=== PATIENT | male | born 1990 | race Caucasian/White ===

== ENCOUNTER 2016-08-15 15:53 | Emergency (ER) | payer SELFPAY ==
[2016-08-15 16:16] VITALS: BP 125/91
--- NOTE | 2016-08-15 20:20 | UC ---
dilip Rodgers Timothy, scribed for Jennifer Mckoy MD on 08/15/16 at 1718 . FLU HPI - HPI Summary HPI Summary: Lex Goosdon is a 26 yo male presenting to [facility] with a cough, sore throat, constant 5/10 sharp, throbbing left ear pain, subjective fever, chills, and diaphoresis for the past 3 days, gradually worsening. His MHx includes tonsilectomy and tobacco use. - History of Current Complaint Chief Complaint: UCEar Stated Complaint: COUGH, AND EAR ACHE Time Seen by Provider: 08/15/16 17:13 Hx Obtained From: Patient Onset/Duration: Sudden Onset, Lasting Days, Still Present, Worse Since - now Severity Currently: Moderate Severity Initially: Moderate Pain Intensity: 5 Pain Scale Used: 0-10 Numeric Associated Signs & Symptoms: Positive: F/C, Cough - Allergy/Home Medications Allergies/Adverse Reactions: Allergies Allergy/AdvReac Type Severity Reaction Status Date / Time No Known Allergies Allergy Verified 12/29/15 12:42 PMH/Surg Hx/FS Hx/Imm Hx Previously Healthy: No - OM and ear tubes Endocrine History Of: Denies: Diabetes, Thyroid Disease Cardiovascular History Of: Denies: Cardiac Disorders, Hypertension, Pacemaker/ICD Respiratory History Of: Denies: COPD, Asthma GI/ History Of: Denies: Ulcer, Renal Disease - Surgical History Surgical History: Yes Surgery Procedure, Year, and Place: tubes in bilat ears;. TONSILECTOMY - Family History Known Family History: Positive: Cardiac Disease, Hypertension, Diabetes, Other - HLD - Social History Occupation: Employed Full-time Alcohol Use: Occasionally Substance Use Type: None Smoking Status (MU): Heavy Every Day Tobacco Smoker Amount Used/How Often: 1 ppd Review of Systems Constitutional: Fever - subjective, Chills, Other - diaphoresis Skin: Negative Eyes: Negative ENT: Sore Throat, Ear Ache, Nasal Discharge - congestion Respiratory: Cough Cardiovascular: Negative Gastrointestinal: Negative Genitourinary: Negative Motor: Negative Neurovascular: Negative Musculoskeletal: Negative Neurological: Negative Psychological: Negative All Other Systems Reviewed And Are Negative: Yes Physical Exam Triage Information Reviewed: Yes Appearance: No Pain Distress, Well-Nourished, Ill-Appearing Vital Signs: Initial Vital Signs Temp 99.6 F 08/15/16 16:12 Pulse 102 08/15/16 16:12 Resp 18 08/15/16 16:12 BP 125/91 08/15/16 16:12 Pulse Ox 97 08/15/16 16:12 Vital Signs Reviewed: Yes Eyes: Positive: Conjunctiva Clear ENT: Positive: Hearing grossly normal, Pharyngeal erythema, TM red - left, Muffled/hoarse voice Dental: Positive: Cervical Lymphadenopathy - anterior Neck: Positive: Supple, Nontender Respiratory: Positive: Lungs clear, Normal breath sounds, No respiratory distress Cardiovascular: Positive: RRR, No Murmur, Pulses Normal, Brisk Capillary Refill Musculoskeletal: Positive: Strength Intact, ROM Intact Neurological: Positive: Alert, Muscle Tone Normal Psychological Exam: Normal Psychological: Positive: Age Appropriate Behavior Skin Exam: Normal Flu Course/Dx - Course Course Of Treatment: Lex Goodson is a 26 yo male presenting to [facility] with 5/10 left ear pain, suggestive fever, and cough among other Sx. After clinical examination he will be discharged home with left otitis media and appropriate instructions. Of note is is BP of 125/91, for which he will be Dx with elevated blood pressure without diagnosis of HTN. - Differential Dx/Diagnosis Differential Diagnosis/HQI/PQRI: Bronchitis, Influenza, Other - left otitis media Provider Diagnoses: elevated blood pressure without a diagnosis of hyptertension , left otitis media Discharge - Discharge Plan Condition: Stable Disposition: HOME Prescriptions: Amoxicillin/Clavulanate TAB* [Augmentin TAB 875*] 875 mg PO BID #20 tab HYDROcodone/ACETAMIN 5-325 MG* [[place] 5-325 TAB*] 1 tab PO Q6H PRN #12 tab MDD 4 PRN Reason: Pain Ibuprofen TAB* [Motrin TAB* 800 MG] 800 mg PO Q6H #40 tab Patient Education Materials: Otitis Media (ED) Forms: *Work Release Referrals: No Primary Care Phys,NOPCP [Primary Care Provider] - [facility] [place] [facility] [Outside] - 2 Days Additional Instructions: Please follow up with the primary care physician provided regarding your visit to urgent care. Please have your blood pressure checked again with one month. Return to urgent care or the emergency department with any new or recurring symptoms. The documentation as recorded by the dilip wilhelm Timothy accurately reflects the service I personally performed and the decisions made by , Jennifer Mckoy MD.
== END 2016-08-15 17:44 | disposition home or self-care (01) ==
LOC: UCEAST 15:53
DX: H66.92 Otitis media, unspecified, left ear (principal); R03.0 Elevated blood-pressure reading, without diagnosis of hypertension; F17.210 Nicotine dependence, cigarettes, uncomplicated
CPT/HCPCS: 99211; G0463

== ENCOUNTER 2017-08-18 12:00 | Emergency (ER) | payer SELFPAY ==
--- NOTE | 2017-08-18 12:11 | UC ---
Abdominal Pain Male HPI - HPI Summary HPI Summary: Pt presents with vomiting, diarrhea, and lower abdominal pain that started yesterday evening. He tells me that this has worsened this morning and he has had diarrhea multiple times today and noticed bright red blood. The amount of blood has been increasing and is now mixed with darker areas of blood. He feels the pain spreading into his lower back - worse on right and worse AFTER having a BM. He has not eaten anything since last night. Is able to drink a little, but feels too nauseous. Feels warm and sweaty intermittently. Has not taken his temperature. Denies cough, SOB, chest pain, hematuria, or dysuria. No hx of kidney stone or bowel disease. - History of Current Complaint Stated Complaint: BLOOD IN STOOL CRAMPS Time Seen by Provider: 08/18/17 12:11 Hx Obtained From: Patient Onset/Duration: Sudden Onset Severity Initially: Mild Severity Currently: Moderate Pain Intensity: 7 Pain Scale Used: 0-10 Numeric - Allergies/Home Medications Allergies/Adverse Reactions: Allergies Allergy/AdvReac Type Severity Reaction Status Date / Time No Known Allergies Allergy Verified 08/18/17 12:18 Home Medications: Home Medications NK [No Home Medications Reported] 08/18/17 [History Confirmed 08/18/17] PMH/Surg Hx/FS Hx/Imm Hx - Additional Past Medical History Additional PMH: None Previously Healthy: Yes - Surgical History Surgical History: Yes Surgery Procedure, Year, and Place: tubes in bilat ears;. TONSILECTOMY - Family History Known Family History: Positive: Cardiac Disease, Hypertension, Diabetes, Other - HLD - Social History Occupation: Employed Full-time Lives: With Family Alcohol Use: Occasionally Substance Use Type: None Smoking Status (MU): Heavy Every Day Tobacco Smoker Amount Used/How Often: 1 ppd Review of Systems Constitutional: Negative Skin: Negative Respiratory: Negative Cardiovascular: Negative Gastrointestinal: Abdominal Pain, Vomiting, Diarrhea, Nausea Genitourinary: Negative Neurovascular: Negative Neurological: Negative Psychological: Negative All Other Systems Reviewed And Are Negative: Yes Physical Exam - Summary Physical Exam Summary: GENERAL: Mildly ill appearing with mild pallor. SKIN: No rashes, sores, or open wounds. HEENT: Head: AT/NC Eyes: PERRLA. EOM intact. Conjunctiva clear without inflammation or discharge. Ears: Hearing grossly normal. TMs intact, no bulging, erythema, or edema. Nose: Nasal mucosa pink and moist. NTTP maxillary and frontal sinus. Throat: Posterior oropharynx without exudates, erythema, or tonsillar enlargement. Uvula midline. NECK: Supple. Nontender. No lymphadenopathy. CHEST: CTAB. No r/r/w. No accessory muscle use. Breathing comfortably and in no distress. CV: Tachycardia. Without m/r/g. Pulses intact. Brisk cap refill. ABDOMEN: Moderate TTP LLQ and RLQ. Neagtive psoas and rovsing's. No distention or guarding. No CVA tenderness. Bowel sounds present. NEURO: Alert. CN II-XII grossly intact. PSYCH: Age appropriate behavior. Triage Information Reviewed: Yes Abd Pain Male Course/Dx - Course Course Of Treatment: UA with 2+ blood and 3+ ketones. EKG with sinus tachycardia 116bpm no ST changes as read by Dr. Andrade. I suspect his symptoms are likely viral, but given his tachycardia, elevated BP, lower abdominal pain, and increasing amounts of blood in stool - I advised the pt that he should be further evaluated in the ED for likely labwork and imaging (ddx diverticulosis, anemia, GI bleed, viral, colitis, appendicitis, renal calculi). He was agreeable to this plan and elected to go by ambulance transfer as he did not feel well enough to drive himself. Left in stable condition via EMS. - Differential Dx/Clinical Impression Provider Diagnoses: Lower abdominal pain. Blood in stool. Vomiting. Diarrhea Discharge - Sign-Out/Discharge Documenting (check all that apply): Discharge/Admit/Transfer - Discharge Plan Condition: Stable Disposition: [facility] OF CARE FAC Referrals: No Primary Care Phys,NOPCP [Primary Care Provider] - Additional Instructions: [place] to [facility] for further workup of abdominal pain and blood in stool - Billing Disposition and Condition Condition: STABLE Disposition: [facility]
[2017-08-18 12:18] VITALS: BP 140/92
[2017-08-18] MEDS ORDERED: Ondansetron ODT TAB* 4 MG PO ONE (12:23)
[2017-08-18] MEDS ORDERED: NS 0.9% 1000 ML* 1,000 ML IV ONE (12:34)
== END 2017-08-18 12:57 | disposition short-term general hospital (02) ==
LOC: UCEAST 12:00
DX: R10.30 Lower abdominal pain, unspecified (principal); K92.1 Melena; R19.7 Diarrhea, unspecified; R11.10 Vomiting, unspecified; F17.210 Nicotine dependence, cigarettes, uncomplicated
CPT/HCPCS: 81003; 93005; 96360; 99213; A9270-GY; G0463

== ENCOUNTER 2017-08-18 13:17 | Inpatient (IN) | payer SELFPAY ==
[2017-08-18] MEDS ORDERED: Ondansetron INJ* 2 MG/ML VIAL IV ONE (13:24)
[2017-08-18] MEDS ORDERED: Acetaminophen TAB* 325 MG PO ONE (13:24)
[2017-08-18] MEDS ORDERED: Acetaminophen TAB* 325 MG ONE (13:25)
[2017-08-18] MEDS: NS 0.9% 1000 ML* 2,000 ML IV ONE ×2 (13:28→14:23)
[2017-08-18 14:02] LABS: ABS Basophils 0 10^3/ul (0-0.2); ABS Eosinophils 0 10^3/ul (0-0.6); ABS Lymphocytes 1.2 10^3/ul (1.0-4.8); ABS Monocytes 1.3 10^3/ul (0-0.8); ABS Neutrophils 14.5 10^3/ul (1.5-7.7); ABS Nucleated RBC 0 10^3/ul; Eosinophil % 0 % (0-6); Hematocrit 48 % (42-52); Hemoglobin 16.5 g/dl (14.0-18.0); Lymphocyte % 6.8 % (25-47); Mean Corpuscular HGB Conc 34 g/dl (31-36); Mean Corpuscular Hemoglobin 31 pg (27-31); Mean Corpuscular Volume 89 fL (80-94); Mean Platelet Volume 7.4 um3 (7.4-10.4); Nucleated Red Blood Cells % 0; Platelet Count 249 10^3/ul (150-450); Red Blood Count 5.36 10^6/ul (4.0-5.4); Red Cell Distribution Width 13 % (10.5-15)
[2017-08-18] MEDS ORDERED: Morphine INJ* 4 MG/ML 1 ML CARPUJECT IV ONE (14:06)
[2017-08-18] MEDS ORDERED: NS 0.9% 1000 ML* 2,000 ML IV ONE (14:06)
[2017-08-18] MEDS ORDERED: Morphine VIAL* 4 MG/ML VIAL (1 ml vial) IV ONE (14:20)
[2017-08-18] MEDS ORDERED: Iohexol 300* (CONTRAST) 10 ML SDV IV ONE (14:42)
--- NOTE | 2017-08-18 16:14 | RAD ---
INDICATION: Lower abdominal pain and bloody diarrhea for one day. Fever. COMPARISON: No relevant prior exams available on the [facility] PACS for comparison. TECHNIQUE: Multidetector CT images were obtained from the lung bases to the ischial tuberosities with 150 mL Omnipaque 300 IV and oral contrast. Multiplanar reformation. REPORT: Images of the inferior thorax remarkable for mild cardiomegaly and diffuse mild prominence of the interstitial markings. Negative for pleural effusions. Decreased density of the liver relative to the spleen consistent with fatty infiltration. No focal hepatic lesions. Unremarkable CT appearance of the gallbladder. Negative for biliary dilatation. No CT abnormality of the pancreas or spleen. Small splenule at the splenic hilum. No CT abnormality of the upper GI. Mildly dilated jejunal bowel loops without identification of a discrete transition point. Unremarkable diminutive medial extending appendix. Fairly featureless colon from the rectum retrograde to the distal ascending segment. Only mild colonic wall thickening in the same distribution most prominent at the transverse colon. Negative for ascites, free air, hernias. Normal adrenal glands. Unremarkable kidneys with symmetric nephrograms and pyelograms. Unremarkable nondilated ureters and urinary bladder. 1 cm short axis portal caval lymph node within normal limits. Negative for lymphadenopathy. Unremarkable abdominal aorta and iliac arteries. Physiologic distention of the IVC. Unremarkable sacroiliac joints. No suspicious osseous lesions evident. IMPRESSION: 1. Normal appendix documented. 2. The CT appearance of the colon is concerning for probable ulcerative colitis. Only mild contiguous colonic wall thickening. No significant perienteric inflammatory change, ascites, or peritoneal abscess. Mild small bowel ileus.
[2017-08-18] MEDS ORDERED: Ciprofloxacin TAB* 500 MG PO ONE (16:47)
[2017-08-18] MEDS ORDERED: metroNIDAZOLE TAB* 250 MG PO ONE (16:47)
[2017-08-18] MEDS ORDERED: Ondansetron INJ* 2 MG/ML VIAL IV PRN (18:56)
[2017-08-18] MEDS ORDERED: NS 0.9% 1000 ML* 1,000 ML IV ONE (18:56)
[2017-08-18] MEDS ORDERED: Ciprofloxacin 400MG IVPREMIX(* 400 MG/200 ML BAG IVPB SCH (19:00)
[2017-08-18] MEDS: metroNIDAZOLE IV 500 MG/100ML* 500 MG/100 ML BAG IVPB SCH (19:24)
[2017-08-18] MEDS: Acetaminophen TAB* 325 MG PO PRN (19:49)
[2017-08-18] MEDS ORDERED: NS 0.9% 1000 ML* 1,000 ML IV SCH (20:00)
[2017-08-18] MEDS ORDERED: KCL 10 MEQ/50 ML IVPREMIX* 10 MEQ/50 ML BAG IV SCH (20:00)
[2017-08-18] MEDS ORDERED: Potassium Chloride IV* 40 MEQ in NS 0.9% 250 ML* 250 ML IVPB ONE (20:00)
--- NOTE | 2017-08-18 21:08 | HP ---
HISTORY AND PHYSICAL: DATE OF ADMISSION: 08/18/17 PRIMARY CARE PROVIDER: None. ATTENDING PHYSICIAN WHILE IN THE HOSPITAL: Brian Tian MD * (report dictated by Ila Kimbrough NP) CHIEF COMPLAINT: 1. Abdominal pain. 2. Diarrhea. HISTORY OF PRESENT ILLNESS: Mr. Goodson is a 27-year-old male patient who is previously healthy. He does have a history of tobacco abuse. He is morbidly obese; however, he comes into the ER today stating that the last 24 to 36 hours , he has had it. He presented today with complaints of lower abdominal cramping getting worse over the last 24 hours. He is not feeling good. He also has decreased appetite. Anytime, he was getting cramps in things such as he said running right through him causing diarrhea. He did say that he was having some bloody diarrhea at times, scant amount. He does admit to lower abdominal cramping. He had a fever last night and today and it is 104. He has had again lower abdominal cramping. No nausea or vomiting. No chest pain or shortness of breath. Past medical history is significant for none. He is a smoker and he is morbidly obese, but he came into the ED, was evaluated, was found to have diffuse colitis, elevated white count, elevated CRP, fever. There was concern for these findings and so because of these findings, we were asked to evaluate for admission. PAST MEDICAL HISTORY: Denies. PAST SURGICAL HISTORY: He has had eustachian tubes placed and he has had tonsillectomy. HOME MEDICATIONS: Denied. ALLERGIES TO MEDICATIONS: No known drug allergies. FAMILY HISTORY: Both his parents are diabetic. No reports of ulcerative colitis or Crohn's. SOCIAL HISTORY: He is a smoker. He smokes about half a pack. He has been smoking since he was 13 years old. He rarely drinks alcohol. Surrogate decision maker is his fiancee. REVIEW OF SYSTEMS: There is a documented fever here. He denied having any significant weight change. There is no ear discharge. He denies having any rhinorrhea. No sore throat. No thyroid enlargement. Denied having any chest pain. There is no orthopnea. There is no nocturnal dyspnea. There is abdominal pain per my HPI. Denies having any loss of consciousness. No pruritus and no skin ulcerations. Review of 14 systems completed, all others negative. PHYSICAL EXAMINATION GENERAL: At this time, Mr. Goodson is a 27-year-old male patient. He is sitting in the ED stretcher. He does appear to be well nourished, well developed. He does not appear to be in any acute distress. VITAL SIGNS: Blood pressure 149/91; pulse 110; respirations were 20, the recording that the respiratory rate are in the upper 20s, but when I encountered him and spoke to him, he was breathing at 20, O2 saturation 96%; temperature initially was 104.7, is now 98.7. HEENT: Head: Atraumatic, normocephalic. Eyes: EOMs are intact. Sclerae anicteric and not pale. Throat: Oral mucosa appears to be dry. No oropharyngeal erythema. NECK: Supple. LUNGS: Clear to auscultation bilaterally. No wheezes, rales, or rhonchi. HEART: Sounds S1, S2. He is tachycardic. ABDOMEN: Soft, flat. There was tenderness in the lower quadrant. Bowel sounds are present. EXTREMITIES: Pulses are 2+ throughout. He is moving all 4 extremities with 5/ 5 strength. NEUROLOGIC: The patient is awake, alert, oriented x3. No gross focal deficits. SKIN: Intact. DIAGNOSTIC STUDIES/LAB DATA: WBC 17.0, RBC of 5.36, hemoglobin 15.5, hematocrit of 48, platelet count of 249. His sodium is 131, potassium is 3.4, chloride of 98, bicarb 23, BUN 12, creatinine of 1.18, glucose 92, lactate 1.2, calcium 8.9. Total bili 0.5, AST 35, ALT 44, alk phos 63. CRP 153. Albumin 4.1. Lipase normal. Abdominal and pelvis CT obtained today which revealed, impression: Normal appendix documented in the CT. Appearance of the colon is concerning for probable ulcerative colitis, only mild contiguous colonic wall thickening. No specific perienteric inflammatory change, ascites or peritoneal abscess. Mild small bowel ileus. Old medical records were reviewed. ASSESSMENT AND PLAN: Mr. Goodson is a 27-year-old male patient coming into the emergency department today with complaints of lower abdominal pain, cramping, diarrhea. It was blood tinged. We were asked to evaluate for admission. He will be admitted under inpatient status for: 1. Colitis. At this time, I am concerned it is infectious colitis. I am going to send off Escherichia coli. In addition to this, stool cultures, Clostridium difficile, stool for ova and parasites, and get a fecal lactoferrin. Because of the CT findings, I think we need to get GI involved. We will touch base with them tomorrow. I am going to put him on Cipro and Flagyl, normal saline, clear liquid diet and continue to follow him closely. 2. Obesity. Continue with lifestyle modification. 3. History of tobacco abuse. I have offered cessation and counseling. 4. DVT prophylaxis. SCDs have been ordered. 5. Fluids, electrolytes, and nutrition. Clear liquid diet. 6. Code status. Full code. TIME SPENT: On the admission was 60 minutes, greater than half of the time spent [id number] with the patient obtaining my history and physical, other half of the time spent going over the plan of care with the patient and implementing plan of care. I did discuss the plan of care with my attending, Dr. Tian, he is in agreement. ILA KIMBROUGH, MEDICAL DEVICE [id number]/[facility] #: [id number] MTDMarie
[2017-08-18] MEDS ORDERED: NS 0.9% 250 ML* 250 ML ONE (21:47)
[2017-08-19] MEDS: metroNIDAZOLE IV 500 MG/100ML* 500 MG/100 ML BAG IVPB SCH ×2 (02:55→11:23)
[2017-08-19] MEDS: Acetaminophen TAB* 325 MG PO PRN ×4 (06:11→20:28)
[2017-08-19 06:35] LABS: Hematocrit 40 % (42-52); Hemoglobin 14.1 g/dl (14.0-18.0); Mean Corpuscular HGB Conc 35 g/dl (31-36); Mean Corpuscular Hemoglobin 31 pg (27-31); Mean Corpuscular Volume 88 fL (80-94); Mean Platelet Volume 7.1 um3 (7.4-10.4); Platelet Count 221 10^3/ul (150-450); Red Blood Count 4.58 10^6/ul (4.0-5.4); Red Cell Distribution Width 14 % (10.5-15); White Blood Count 10.4 10^3/ul (3.5-10.8)
[2017-08-19 06:49] LABS: EGFR Non-African American 103.9 (>60)
[2017-08-19 07:27] LABS: ABS Basophils 0.1 10^3/ul (0-0.2); ABS Eosinophils 0 10^3/ul (0-0.6); ABS Lymphocytes 1.2 10^3/ul (1.0-4.8); ABS Monocytes 1.3 10^3/ul (0-0.8); ABS Neutrophils 7.8 10^3/ul (1.5-7.7); ABS Nucleated RBC 0 10^3/ul; Nucleated Red Blood Cells % 0
[2017-08-19 07:30] LABS: Monocytes % 11 % (0-7)
[2017-08-19] MEDS ORDERED: Ciprofloxacin 400MG IVPREMIX(* 400 MG/200 ML BAG IVPB SCH (08:00)
[2017-08-19] MEDS: Morphine VIAL* 4 MG/ML VIAL (1 ml vial) IV PRN ×3 (08:20→20:29)
[2017-08-19] MEDS ORDERED: Levofloxacin 750 MG IVPREMIX(* 750 MG/150 ML BAG IVPB STA (12:21)
--- NOTE | 2017-08-19 18:29 | PN ---
Subjective Date of Service: 08/19/17 Interval History: Patient seen and examined. Still with abdominal pain, lower abdomen and continued diarrhea. No n/v. Patient states no longer has bloody diarrhea, no fever or chills, no chest pain, no SOB. Objective Active Medications: Acetaminophen (Tylenol Tab*) 650 mg PO Q4H PRN PRN Reason: FEVER/PAIN Last Admin: 08/19/17 15:50 Dose: 650 mg Sodium Chloride (Ns 0.9% 1000 Ml*) 1,000 mls @ 125 mls/hr IV PER RATE ZACKERY Last Admin: 08/18/17 21:50 Dose: 125 mls/hr Levofloxacin/Dextrose (Levaquin 750 Mg Ivpremix(*)) 750 mg in 150 mls @ 100 mls /hr IVPB Q24H ZACKERY Morphine Sulfate (Morphine Vial*) 2 mg IV Q4H PRN PRN Reason: PAIN - MILD Last Admin: 08/19/17 15:41 Dose: 2 mg Ondansetron HCl (Zofran Inj*) 4 mg IV Q6H PRN PRN Reason: NAUSEA Last Admin: 08/19/17 06:11 Dose: 4 mg Vital Signs - 8 hr 08/19/17 08/19/17 08/19/17 11:15 11:19 15:26 Temperature 98.0 F 97.8 F Pulse Rate 73 75 Respiratory 18 22 Rate Blood Pressure 117/72 120/72 (mmHg) O2 Sat by Pulse 97 97 Oximetry 08/19/17 08/19/17 15:41 17:23 Temperature Pulse Rate Respiratory 18 18 Rate Blood Pressure (mmHg) O2 Sat by Pulse Oximetry Oxygen Devices in Use Now: None Appearance: Alert, ill-appearing Eyes: No Scleral Icterus, PERRLA Ears/Nose/Mouth/Throat: Mucous Membranes Moist Neck: NL Appearance and Movements; NL JVP, Trachea Midline Respiratory: Symmetrical Chest Expansion and Respiratory Effort, Clear to Auscultation Cardiovascular: NL Sounds; No Murmurs; No JVD, RRR Abdominal: NL Sounds; No Tenderness; No Distention Extremities: No Edema Neurological: Alert and Oriented x 3 Nutrition: Taking PO's Result Diagrams: 08/19/17 06:22 08/19/17 06:22 Microbiology and Other Data: Microbiology 08/18/17 19:24 Stool Gross Appearance - Final Stool Stool Lactoferrin - Final Cryptosporidium/Giardia - Final Neg Cryptosporidium/Giardia 08/18/17 19:24 Stool Culture - Preliminary Stool Salmonella Species Stool Gross Appearance - Final Shiga Toxin I & II - Final Negative Shiga Toxin 1 & 2 C. difficile DNA Amplification - Final 027 Presumptive NEGATIVE Toxigenic C.diff NEGATIVE Diagnostic Imaging: Patient Name: YUSUF CONTRERAS Medical Record#: [id number] Ordering Physician: Richard Lloyd MD Acct.#: [id number] : 1990 Age: 27 Sex: M Location: EMERGENCY DEPARTMENT Exam Date: 08/18/17 1324 ADM Status: REG ER Order Information: CT ABD/PEL W Accession Number: [id number] CPT: 44225 INDICATION: Lower abdominal pain and bloody diarrhea for one day. Fever. COMPARISON: No relevant prior exams available on the [facility] PACS for comparison. TECHNIQUE: Multidetector CT images were obtained from the lung bases to the ischial tuberosities with 150 mL Omnipaque 300 IV and oral contrast. Multiplanar reformation. REPORT: Images of the inferior thorax remarkable for mild cardiomegaly and diffuse mild prominence of the interstitial markings. Negative for pleural effusions. Decreased density of the liver relative to the spleen consistent with fatty infiltration. No focal hepatic lesions. Unremarkable CT appearance of the gallbladder. Negative for biliary dilatation. No CT abnormality of the pancreas or spleen. Small splenule at the splenic hilum. No CT abnormality of the upper GI. Mildly dilated jejunal bowel loops without identification of a discrete transition point. Unremarkable diminutive medial extending appendix. Fairly featureless colon from the rectum retrograde to the distal ascending segment. Only mild colonic wall thickening in the same distribution most prominent at the transverse colon. Negative for ascites, free air, hernias. Normal adrenal glands. Unremarkable kidneys with symmetric nephrograms and pyelograms. Unremarkable nondilated ureters and urinary bladder. 1 cm short axis portal caval lymph node within normal limits. Negative for lymphadenopathy. Unremarkable abdominal aorta and iliac arteries. Physiologic distention of the IVC. Unremarkable sacroiliac joints. No suspicious osseous lesions evident. IMPRESSION: 1. Normal appendix documented. 2. The CT appearance of the colon is concerning for probable ulcerative colitis. Only mild contiguous colonic wall thickening. No significant perienteric inflammatory change, ascites, or peritoneal abscess. Mild small bowel ileus. <Electronically signed by Erwin Alejandre MD in [place]> 08/18/17 1611 Dictated By: Erwin Alejandre MD Dictated Date/Time: 08/18/17 1611 Transcribed Date/Time: 08/18/17 1541 Copy to: CC:Richard Lloyd MD; No Primary Care Phys,NOPCP Imaging - [facility] Imaging - [facility] Imaging - [facility] 1 of 2 Assess/Plan/Problems-Billing Assessment: This is a 27 year old male with copious diarrhea and abdominal pain, stool culture with salmonella. - Patient Problems (1) Salmonellosis Code(s): A02.9 - SALMONELLA INFECTION, UNSPECIFIED SNOMED Code(s): 222784818 Comment: - changed atbx to levaquin today - does not appear septic - pain control - monitor stool output - advance diet tomorrow if tolerated - May consider GI and ID consults if no improvement tomorrow (2) Diarrhea Code(s): R19.7 - DIARRHEA, UNSPECIFIED SNOMED Code(s): 79902127 Comment: - 2/2 to above - IVF - supportive care (3) Leukocytosis Code(s): D72.829 - ELEVATED WHITE BLOOD CELL COUNT, UNSPECIFIED SNOMED Code(s) : 279228691 Comment: - resolving, monitor CBC (4) Electrolyte abnormality Code(s): E87.8 - OTH DISORDERS OF ELECTROLYTE AND FLUID BALANCE, NEC SNOMED Code(s): 124354922 Comment: - 2/2 to above - improving with IVF management Status and Disposition: remain inpatient
[2017-08-20] MEDS: Morphine VIAL* 4 MG/ML VIAL (1 ml vial) IV PRN ×5 (00:40→20:00)
[2017-08-20] MEDS: Acetaminophen TAB* 325 MG PO PRN ×5 (00:41→20:00)
[2017-08-20 06:44] LABS: Hematocrit 43 % (42-52); Hemoglobin 14.8 g/dl (14.0-18.0); Mean Corpuscular HGB Conc 34 g/dl (31-36); Mean Corpuscular Hemoglobin 31 pg (27-31); Mean Corpuscular Volume 89 fL (80-94); Mean Platelet Volume 7.4 um3 (7.4-10.4); Platelet Count 237 10^3/ul (150-450); Red Blood Count 4.85 10^6/ul (4.0-5.4); Red Cell Distribution Width 13 % (10.5-15); White Blood Count 8.6 10^3/ul (3.5-10.8)
[2017-08-20 07:10] LABS: EGFR Non-African American 103.9 (>60)
[2017-08-20 07:32] LABS: ABS Basophils 0 10^3/ul (0-0.2); ABS Eosinophils 0.2 10^3/ul (0-0.6); ABS Lymphocytes 1.2 10^3/ul (1.0-4.8); ABS Monocytes 1.3 10^3/ul (0-0.8); ABS Neutrophils 5.8 10^3/ul (1.5-7.7)
[2017-08-20 07:34] LABS: Monocytes % 13 % (0-7)
[2017-08-20] MEDS ORDERED: Levofloxacin 750 MG IVPREMIX(* 750 MG/150 ML BAG IVPB SCH (13:00)
--- NOTE | 2017-08-20 15:57 | CONS ---
CONSULTATION REPORT: DATE OF CONSULT: 08/20/17 REQUESTING PROVIDER: Steven Villegas NP CONSULTING SERVICE: Infectious Disease. REASON FOR CONSULT: Salmonella colitis. IMPRESSION: 1. Colitis due to salmonella species, which grew on stool culture, and his fever and tachycardia are improving with fluids and antibiotics; however, he has severe persistent left-sided abdominal pain, which I think is due to colitis. He does have rebound tenderness. I think perforation is less likely a possibility. 2. Morbid obesity. RECOMMENDATION: Continue Levaquin 750 mg IV daily and we will check an abdominal x- ray to evaluate size of colon and rule out free air. Follow his abdominal symptoms. HISTORY OF PRESENT ILLNESS: This is a 27-year-old male with obesity, admitted with diarrhea and abdominal pain. Diarrhea developed over the weekend, late Saturday, with multiple watery slightly bloody stools, some mucus, number of stools per day and night, and then Saturday developed more severe left and upper abdominal pain, came to the emergency room on 08/18/17. His white count was 17, 000. He was started on Cipro and Flagyl. He had a CT scan that showed bowel wall ischemia on the transverse and descending colon to the rectum. I switched yesterday to Levaquin 750 mg, which he has had once. He was initially febrile to 40.4 degrees on admission and that was the last fever he has had. His abdominal pain has been bad since Saturday, mostly on the left side, worse when he is moving around and when he is standing up, better when he lies down and stays still. Tylenol and the pain medicine have been helpful, but do not resolve the pain. He rates it 9/10, that is worse. He has had no nausea. He is taking sips of clear fluids. He has had a couple of loose stools today with some blood-tinged parts. The stool culture grew salmonella. It was negative for C. diff. Negative for crypto and giardia. PAST MEDICAL HISTORY: 1. Obesity. 2. History of eustachian tubes placed. 3. Status post tonsillectomy. MEDICATIONS: 1. Tylenol. 2. Levaquin. 3. Zofran. ALLERGIES: No known drug allergies. SOCIAL HISTORY: He lives in [place] with his fiancee and daughter. He is a smoker. REVIEW OF SYSTEMS: A 14-point review of systems was all negative except as noted above in the history of present illness. PHYSICAL EXAM: Vital Signs: Temperature 36, heart rate 70, respiratory rate 14 , blood pressure 120/70, oxygen saturation 96% on room air. General: He is awake and appears mildly uncomfortable. HEENT: There is no conjunctival hemorrhage. Oropharynx without lesions. Neck: Supple without mass. Lymph Nodes: There is no inguinal, axillary, or epitrochlear lymphadenopathy. Heart : Regular rate and rhythm without murmurs, rubs, or gallops. Lungs: Clear to auscultation bilaterally. Abdomen: Mildly distended and soft. There is left- sided tenderness to palpation. No right-sided or right lower quadrant tenderness. There is mild rebound tenderness. There is no pain when I bump the bed. There are bowel sounds present. Skin: There is no rash or splinter hemorrhages. Musculoskeletal: There is no spine tenderness to palpation or joint synovitis. LABORATORY DATA: White blood cell count 8, hemoglobin 14, and platelets 237. Creatinine is 0.8. CRP was 150 on 08/18/17. Please see impression and recommendations outlined above. Thanks for asking me to see Mr. Goodson in consultation. [id number]/[id number] #: [id number] TL
--- NOTE | 2017-08-20 16:10 | PN ---
Subjective Date of Service: 08/20/17 Interval History: No overnight events. Still complains of left-sided abdominal pain that he does not think is improving. Diarrhea x 3 this morning, yesterday it was too often to count. Has not seen any blood in his stool, no documented fevers. Tolerating a clear liquid diet, but wants to advance diet. No other complaints besides abdominal pain. Family History: Unchanged from Admission Social History: Unchanged from Admission Past Medical History: Unchanged from Admission Objective Active Medications: Acetaminophen (Tylenol Tab*) 650 mg PO Q4H PRN PRN Reason: FEVER/PAIN Last Admin: 08/20/17 15:54 Dose: 650 mg Sodium Chloride (Ns 0.9% 1000 Ml*) 1,000 mls @ 125 mls/hr IV PER RATE [facility] Last Admin: 08/18/17 21:50 Dose: 125 mls/hr Levofloxacin/Dextrose (Levaquin 750 Mg Ivpremix(*)) 750 mg in 150 mls @ 100 mls /hr IVPB Q24H [facility] Last Admin: 08/20/17 12:52 Dose: 100 mls/hr Morphine Sulfate (Morphine Vial*) 2 mg IV Q4H PRN PRN Reason: PAIN - MILD Last Admin: 08/20/17 15:55 Dose: 2 mg Ondansetron HCl (Zofran Inj*) 4 mg IV Q6H PRN PRN Reason: NAUSEA Last Admin: 08/19/17 06:11 Dose: 4 mg Vital Signs - 8 hr 08/20/17 08/20/17 08/20/17 10:42 11:20 11:54 Temperature 97.9 F Pulse Rate 72 Respiratory 14 14 16 Rate Blood Pressure 122/74 (mmHg) O2 Sat by Pulse 96 Oximetry 08/20/17 15:55 Temperature Pulse Rate Respiratory 16 Rate Blood Pressure (mmHg) O2 Sat by Pulse Oximetry Oxygen Devices in Use Now: None Appearance: alert, uncomfortable, nontoxic Eyes: No Scleral Icterus Ears/Nose/Mouth/Throat: NL Teeth, Lips, Gums Neck: NL Appearance and Movements; NL JVP, Trachea Midline Respiratory: Symmetrical Chest Expansion and Respiratory Effort, Clear to Auscultation Cardiovascular: NL Sounds; No Murmurs; No JVD, RRR, No Edema Abdominal: - - hyperactive bowel sounds, left-sided pain to palpation with guarding Lymphatic: No Cervical Adenopathy Extremities: No Edema Skin: No Rash or Ulcers Neurological: Alert and Oriented x 3 Result Diagrams: 08/20/17 06:29 08/20/17 06:29 Microbiology and Other Data: Microbiology 08/18/17 19:24 Stool Gross Appearance - Final Stool Stool Lactoferrin - Final Cryptosporidium/Giardia - Final Neg Cryptosporidium/Giardia 08/18/17 19:24 Stool Culture - Preliminary Stool Salmonella Species Stool Gross Appearance - Final Shiga Toxin I & II - Final Negative Shiga Toxin 1 & 2 C. difficile DNA Amplification - Final 027 Presumptive NEGATIVE Toxigenic C.diff NEGATIVE Diagnostic Imaging: Patient Name: YUSUF CONTRERAS Medical Record#: [id number] Ordering Physician: Richard Lloyd MD Acct.#: [id number] : 1990 Age: 27 Sex: M Location: EMERGENCY DEPARTMENT Exam Date: 08/18/17 1324 ADM Status: REG ER Order Information: CT ABD/PEL W Accession Number: [id number] CPT: 30477 INDICATION: Lower abdominal pain and bloody diarrhea for one day. Fever. COMPARISON: No relevant prior exams available on the [facility] PACS for comparison. TECHNIQUE: Multidetector CT images were obtained from the lung bases to the ischial tuberosities with 150 mL Omnipaque 300 IV and oral contrast. Multiplanar reformation. REPORT: Images of the inferior thorax remarkable for mild cardiomegaly and diffuse mild prominence of the interstitial markings. Negative for pleural effusions. Decreased density of the liver relative to the spleen consistent with fatty infiltration. No focal hepatic lesions. Unremarkable CT appearance of the gallbladder. Negative for biliary dilatation. No CT abnormality of the pancreas or spleen. Small splenule at the splenic hilum. No CT abnormality of the upper GI. Mildly dilated jejunal bowel loops without identification of a discrete transition point. Unremarkable diminutive medial extending appendix. Fairly featureless colon from the rectum retrograde to the distal ascending segment. Only mild colonic wall thickening in the same distribution most prominent at the transverse colon. Negative for ascites, free air, hernias. Normal adrenal glands. Unremarkable kidneys with symmetric nephrograms and pyelograms. Unremarkable nondilated ureters and urinary bladder. 1 cm short axis portal caval lymph node within normal limits. Negative for lymphadenopathy. Unremarkable abdominal aorta and iliac arteries. Physiologic distention of the IVC. Unremarkable sacroiliac joints. No suspicious osseous lesions evident. IMPRESSION: 1. Normal appendix documented. 2. The CT appearance of the colon is concerning for probable ulcerative colitis. Only mild contiguous colonic wall thickening. No significant perienteric inflammatory change, ascites, or peritoneal abscess. Mild small bowel ileus. <Electronically signed by Erwin Alejandre MD in OV> 08/18/17 1611 Dictated By: Erwin Alejandre MD Dictated Date/Time: 08/18/17 1611 Transcribed Date/Time: 08/18/17 1541 Copy to: CC:Richard Lloyd MD; No Primary Care Phys,NOPCP Imaging - [facility] Imaging - [facility] Imaging - [facility] 1 of 2 Assess/Plan/Problems-Billing Assessment: This is a 27 year old male admitted with diarrhea and findings concerning for UC on CT, then found to have salmonella in the stool. - Patient Problems (1) Colitis Current Visit: Yes Status: Acute Code(s): K52.9 - NONINFECTIVE GASTROENTERITIS AND COLITIS, UNSPECIFIED SNOMED Code(s): 16079840 Comment: Inflammatory vs. infectious--> finding of salmonella in stool suggests infectious; no history suggestive of inflammatory, however I would expect his symptoms to be improving by now. Evaluated by ID this morning, who recommended continuation of levaquin CT abdomen showed "probable ulcerative colitis," I suspect this finding reflects salmonella colitis. Advance diet today. Status and Disposition: inpatient
--- NOTE | 2017-08-20 16:20 | RAD ---
HISTORY: Seminal colitis, worsening pain COMPARISONS: CT dated August 18, 2017 VIEWS: Frontal supine and upright views of the abdomen. FINDINGS: BOWEL: There is a nonspecific bowel gas pattern, with nondilated small bowel gas noted. CALCULI: There are no abnormal calculi. BONES AND SOFT TISSUES: There are no osseous abnormalities. OTHER FINDINGS: The lung bases are clear. There is no subphrenic gas. IMPRESSION: NONSPECIFIC BOWEL GAS PATTERN. NO APPRECIABLE FREE PERITONEAL GAS.
[2017-08-21] MEDS: Acetaminophen TAB* 325 MG PO PRN ×3 (00:06→19:48)
[2017-08-21] MEDS: Morphine VIAL* 4 MG/ML VIAL (1 ml vial) IV PRN ×3 (00:07→19:47)
--- NOTE | 2017-08-21 10:50 | PN ---
Progress Note - Progress Note Date of Service: 08/21/17 SOAP: Subjective: CC: colitis HPI: 27 year old man with abd pain and diarrhea; left sided pain which is slightly improved. 2 loose stools today. No fever or rash. Tolerating liquids. Objective: Vital Signs Temp 36.9 C 08/20/17 23:09 Pulse 62 08/20/17 23:09 Resp 16 08/21/17 08:56 BP 112/70 08/20/17 23:09 Pulse Ox 96 08/21/17 02:50 Intake & Output 08/20/17 08/21/17 08/21/17 18:59 06:59 18:59 Intake Total 2080 10 120 Output Total 350 200 Balance 1730 -190 120 Intake: IV Fluids 10 NS (0.9%) 10 IVPB 150 ABX - LEVAQUIN 150 Oral 1930 0 120 Output: Urine 150 200 Liquid Stool 200 Other: Estimated Void Medium # Bowel Movements 1 0 # Voids 1 Gen:awake, no distress HEENT: no thrush Heart:RRR no murmur Lungs:CTA BL Abd:+BS non distended, LLQ tender, no rebound Skin: no rash Laboratory Results - last 24 hr 08/18/17 08/20/17 19:24 06:29 Hem Pathologist Commnt Parasite Exam See comment Microbiology 08/18/17 14:06 Blood Venous Aerobic Blood Culture - Preliminary No Growth Day 2 08/18/17 14:06 Blood Venous Anaerobic Blood Culture - Preliminary No Growth Day 2 08/18/17 13:50 Blood Venous Aerobic Blood Culture - Preliminary No Growth Day 2 08/18/17 13:50 Blood Venous Anaerobic Blood Culture - Preliminary No Growth Day 2 08/18/17 19:24 Stool Stool Culture - Final Salmonella Species 08/18/17 19:24 Stool Shiga Toxin I & II - Final Negative Shiga Toxin 1 & 2 08/18/17 19:24 Stool C. difficile DNA Amplification - Final 027 Presumptive NEGATIVE Toxigenic C.diff NEGATIVE Abd xray: no free air Assessment: 1. Infectious colitis due to Salmonella non typhi 2. abd pain due to #1/serositis from inflamed colon 3. morbid obesity Plan: 1. change levaquin to 750 mg PO daily for 4 more days. Diet as tolerated per hospitalists Discussed with Dr Richards
[2017-08-21] MEDS: Levofloxacin TAB* 750 MG PO SCH (11:42)
--- NOTE | 2017-08-21 17:30 | PN ---
Subjective Date of Service: 08/21/17 Interval History: Feels a little bit better today. Ready to advance diet. No fevers. 3 episodes of diarrhea by 10am this morning. Family History: Unchanged from Admission Social History: Unchanged from Admission Past Medical History: Unchanged from Admission Objective Active Medications: Acetaminophen (Tylenol Tab*) 650 mg PO Q4H PRN PRN Reason: FEVER/PAIN Last Admin: 08/21/17 07:57 Dose: 650 mg Sodium Chloride (Ns 0.9% 1000 Ml*) 1,000 mls @ 125 mls/hr IV PER RATE [facility] Last Admin: 08/18/17 21:50 Dose: 125 mls/hr Levofloxacin (Levaquin Tab*) 750 mg PO DAILY [facility] Last Admin: 08/21/17 11:42 Dose: 750 mg Morphine Sulfate (Morphine Vial*) 2 mg IV Q4H PRN PRN Reason: PAIN - MILD Last Admin: 08/21/17 07:56 Dose: 2 mg Ondansetron HCl (Zofran Inj*) 4 mg IV Q6H PRN PRN Reason: NAUSEA Last Admin: 08/19/17 06:11 Dose: 4 mg Vital Signs - 8 hr 08/21/17 08/21/17 08/21/17 11:13 11:36 11:45 Temperature 97.4 F Pulse Rate 56 62 Respiratory 20 Rate Blood Pressure 100/61 98/62 100/62 (mmHg) O2 Sat by Pulse 97 Oximetry 08/21/17 14:00 Temperature 98.4 F Pulse Rate 68 Respiratory 16 Rate Blood Pressure 116/71 (mmHg) O2 Sat by Pulse 98 Oximetry Oxygen Devices in Use Now: None Appearance: alert, nontoxic Eyes: No Scleral Icterus Ears/Nose/Mouth/Throat: - - poor dentition Neck: NL Appearance and Movements; NL JVP Respiratory: Symmetrical Chest Expansion and Respiratory Effort, Clear to Auscultation Cardiovascular: NL Sounds; No Murmurs; No JVD, RRR Abdominal: - - hyperactive bowel sounds. tender to palpation over left upper and lower quadrants with guarding. no rebound. Lymphatic: No Cervical Adenopathy Extremities: No Edema Skin: No Rash or Ulcers Neurological: Alert and Oriented x 3 Result Diagrams: 08/20/17 06:29 08/20/17 06:29 Microbiology and Other Data: Microbiology 08/18/17 19:24 Stool Gross Appearance - Final Stool Stool Lactoferrin - Final Cryptosporidium/Giardia - Final Neg Cryptosporidium/Giardia 08/18/17 19:24 Stool Culture - Preliminary Stool Salmonella Species Stool Gross Appearance - Final Shiga Toxin I & II - Final Negative Shiga Toxin 1 & 2 C. difficile DNA Amplification - Final 027 Presumptive NEGATIVE Toxigenic C.diff NEGATIVE Diagnostic Imaging: Patient Name: YUSUF CONTRERAS Medical Record#: [id number] Ordering Physician: Richard Lloyd MD Acct.#: [id number] : 1990 Age: 27 Sex: M Location: EMERGENCY DEPARTMENT Exam Date: 08/18/17 1324 ADM Status: REG ER Order Information: CT ABD/PEL W Accession Number: [id number] CPT: 44113 INDICATION: Lower abdominal pain and bloody diarrhea for one day. Fever. COMPARISON: No relevant prior exams available on the [facility] PACS for comparison. TECHNIQUE: Multidetector CT images were obtained from the lung bases to the ischial tuberosities with 150 mL Omnipaque 300 IV and oral contrast. Multiplanar reformation. REPORT: Images of the inferior thorax remarkable for mild cardiomegaly and diffuse mild prominence of the interstitial markings. Negative for pleural effusions. Decreased density of the liver relative to the spleen consistent with fatty infiltration. No focal hepatic lesions. Unremarkable CT appearance of the gallbladder. Negative for biliary dilatation. No CT abnormality of the pancreas or spleen. Small splenule at the splenic hilum. No CT abnormality of the upper GI. Mildly dilated jejunal bowel loops without identification of a discrete transition point. Unremarkable diminutive medial extending appendix. Fairly featureless colon from the rectum retrograde to the distal ascending segment. Only mild colonic wall thickening in the same distribution most prominent at the transverse colon. Negative for ascites, free air, hernias. Normal adrenal glands. Unremarkable kidneys with symmetric nephrograms and pyelograms. Unremarkable nondilated ureters and urinary bladder. 1 cm short axis portal caval lymph node within normal limits. Negative for lymphadenopathy. Unremarkable abdominal aorta and iliac arteries. Physiologic distention of the IVC. Unremarkable sacroiliac joints. No suspicious osseous lesions evident. IMPRESSION: 1. Normal appendix documented. 2. The CT appearance of the colon is concerning for probable ulcerative colitis. Only mild contiguous colonic wall thickening. No significant perienteric inflammatory change, ascites, or peritoneal abscess. Mild small bowel ileus. <Electronically signed by Erwin Alejandre MD in OV> 08/18/17 1611 Dictated By: Erwin Alejandre MD Dictated Date/Time: 08/18/17 1611 Transcribed Date/Time: 08/18/17 1541 Copy to: CC:Richard Lloyd MD; No Primary Care Phys,NOPCP Imaging - [facility] Imaging - [facility] Imaging - [facility] 1 of 2 Assess/Plan/Problems-Billing Assessment: This is a 27 year old male admitted with diarrhea and findings concerning for UC on CT, then found to have salmonella in the stool. - Patient Problems (1) Colitis Current Visit: Yes Status: Acute Code(s): K52.9 - NONINFECTIVE GASTROENTERITIS AND COLITIS, UNSPECIFIED SNOMED Code(s): 08587247 Comment: Inflammatory vs. infectious--> finding of salmonella in stool suggests infectious; no history suggestive of inflammatory, and symptoms are now improving on treatment for salmonella. ID recommended changing levaquin to PO today CT abdomen showed "probable ulcerative colitis," I suspect this finding reflects salmonella colitis. Advance diet again today. Needs to tolerate PO abx prior to discharge Status and Disposition: inpatient
[2017-08-21 20:58] LABS: Hematocrit 43 % (42-52); Hemoglobin 14.9 g/dl (14.0-18.0)
[2017-08-22 02:22] LABS: Hematocrit 42 % (42-52); Hemoglobin 14.3 g/dl (14.0-18.0)
[2017-08-22 06:12] LABS: Hematocrit 42 % (42-52); Hemoglobin 14.2 g/dl (14.0-18.0); Mean Corpuscular HGB Conc 34 g/dl (31-36); Mean Corpuscular Hemoglobin 30 pg (27-31); Mean Corpuscular Volume 89 fL (80-94); Mean Platelet Volume 7.3 um3 (7.4-10.4); Platelet Count 302 10^3/ul (150-450); Red Blood Count 4.69 10^6/ul (4.0-5.4); Red Cell Distribution Width 13 % (10.5-15); White Blood Count 9.7 10^3/ul (3.5-10.8)
[2017-08-22 06:46] LABS: Monocytes % 8 % (0-7)
[2017-08-22] MEDS ORDERED: NS 0.9% 1000 ML* 1,000 ML IV ONE (09:06)
[2017-08-22] MEDS: Levofloxacin TAB* 750 MG PO SCH (09:11)
--- NOTE | 2017-08-22 10:02 | PN ---
Progress Note - Progress Note Date of Service: 08/22/17 SOAP: Subjective: CC: colitis HPI: 27 year old man with abd pain and diarrhea; left sided pain which is slightly improved but not gone. 1 soft stool today. No fever or rash. Eating more. Objective: Vital Signs Temp 36.5 C 08/22/17 07:27 Pulse 55 08/22/17 07:27 Resp 18 08/22/17 08:00 BP 95/56 08/22/17 07:27 Pulse Ox 96 08/22/17 07:27 Intake & Output 08/21/17 08/22/17 08/22/17 18:59 06:59 18:59 Intake Total 1300 1100 360 Output Total 950 1150 900 Balance 350 -50 -540 Intake: IV Fluids 10 20 NS (0.9%) 10 20 Oral 1290 1080 360 Output: Urine 600 550 900 Liquid Stool 350 600 Other: Estimated Void Medium Date of Last Bowel 08/21/2017 Movement # Bowel Movements 1 0 1 Estimated Stool Amount Small Medium # Voids 1 2 Gen:awake, no distress HEENT: no thrush Heart:RRR no murmur Lungs:CTA BL Abd:+BS non distended, LLQ tender, no rebound Skin: no rash Assessment: 1. Infectious colitis due to Salmonella non typhi 2. abd pain due to #1/serositis from inflamed colon 3. morbid obesity Plan: 1. levaquin 750 mg PO daily for 3 more days. Diet as tolerated 25 minutes floor time >50% face to face discussing follow up plans
--- NOTE | 2017-08-22 11:38 | PN ---
Subjective Date of Service: 08/22/17 Family History: Unchanged from Admission Social History: Unchanged from Admission Past Medical History: Unchanged from Admission Objective Active Medications: Acetaminophen (Tylenol Tab*) 650 mg PO Q4H PRN Levofloxacin (Levaquin Tab*) 750 mg PO DAILY [facility] Morphine Sulfate (Morphine Vial*) 2 mg IV Q4H PRN Ondansetron HCl (Zofran Inj*) 4 mg IV Q6H PRN Vital Signs: Temp Pulse Resp BP Pulse Ox 97.7 F 77 18 109/59 99 08/22/17 07:27 08/22/17 10:36 08/22/17 08:00 08/22/17 10:36 08/22/17 09:06 Oxygen Devices in Use Now: None Appearance: M Result Diagrams: 08/22/17 05:54 08/20/17 06:29 Microbiology and Other Data: . Diagnostic Imaging: . Assess/Plan/Problems-Billing Assessment: Mr. Goodson is a 27 year old male admitted with diarrhea and findings concerning for UC on CT, then found to have salmonella in the stool. - Patient Problems (1) Salmonellosis Comment: - Complete course of cipro (2) Colitis Current Visit: Yes Status: Acute Code(s): K52.9 - NONINFECTIVE GASTROENTERITIS AND COLITIS, UNSPECIFIED SNOMED Code(s): 38113861 Comment: - Resolving, tolerating oral intake, minimal semiformed stool. - Finding of salmonella in stool suggests infectious; no history suggestive of inflammatory, and symptoms are now improving on treatment for salmonella. - CT abdomen showed "probable ulcerative colitis," I suspect this finding reflects salmonella colitis. (3) Electrolyte abnormality Comment: - 2/2 to above - improving with IVF management Status and Disposition: inpatient. Discharge to home.
[2017-08-22 12:49] VITALS: BP 115/63
--- NOTE | 2017-08-22 21:57 | DS ---
HOSPITAL MEDICINE DISCHARGE SUMMARY: DATE OF ADMISSION: 08/18/17 DATE OF DISCHARGE: 08/22/17 PRIMARY CARE PHYSICIAN: None. ATTENDING PHYSICIAN: Dr. Mejia * (dictation provided by Felisha Mclaughlin NP) PRIMARY DIAGNOSIS: Salmonella colitis. SECONDARY DIAGNOSES: None. PAST SURGICAL HISTORY: 1. History of eustachian tubes placed. 2. Tonsillectomy. MEDICATIONS AT THE TIME OF DISCHARGE: Cipro 500 mg p.o. b.i.d. x4 days. HOSPITAL COURSE: Mr. Goodson is a 27-year-old male with no known past medical history, who presented to the hospital on 08/18/17 with concern for abdominal pain and diarrhea. Please see the dictated H and P from Steven Villegas NP for complete details. In brief, the patient stated that he had had abdominal pain and diarrhea for about 24 hours prior to arrival. He had a fever reported the night prior of 104 degrees Fahrenheit. In the emergency room, he had a white blood cell count of 17. He had a CRP of 153.36. He was febrile to 104.7. He went on for an abdomen and pelvis CT, which was read as follows: "Normal appendix documented. The CT appearance of the colon is concerning for probable ulcerative colitis, only mild contiguous colonic wall thickening, no significant perienteric inflammatory change, ascites, or peritoneal abscess, and mild small bowel ileus." Mr. Goodson was admitted to the hospital out of concern for possible ulcerative plus inflammatory versus infectious colitis. He did go on to have a stool culture, which was positive for Salmonella. For this, he was seen in consultation by Dr. Edvin Nesbitt from Infectious Diseases who recommended that he be treated initially with intravenous Levaquin and then transitioned over to an oral fluoroquinolone. Mr. Goodson is doing much better today. He is tolerating oral intake well and is tolerating the oral fluoroquinolone. He has been ambulating in his room without difficulty. His diarrhea and abdominal pain improved dramatically. He is afebrile. His leukocytosis has resolved. His electrolytes are essentially normal. Mr. Goodson is dramatically stable for discharge to home to complete an oral course of ciprofloxacin and treatment of salmonella colitis. Mr. Goodson was strongly encouraged to return to the emergency room should he have return of fever, bloody diarrhea, or severe abdominal pain. DISPOSITION: Home. DIET: Regular. ACTIVITY: As tolerated. FOLLOWUP PLANS: Please follow up and obtain a primary care physician. I will alert our office to reach out to the patient to possibly arrange this. TIME SPENT: Approximately 60 minutes were spent on the discharge of this patient, more than half the time was spent with the patient at the bedside reviewing the events leading up to this hospitalization, performing the physical examination, and reviewing my plan of care. FELISHA MCLAUGHLIN NP [id number]/[facility] #: [id number] TL
--- NOTE | 2017-08-27 08:58 | ED ---
Arthur Rodgers Tiffany, scribed for Richard Lloyd MD on 08/18/17 at 1410 . 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 Describes pain as constant, rates the pain 3/10 in severity. Symptoms aggravated by light. Symptoms alleviated by nothing. Reports diarrhea, nausea, vomiting, decreased appetite, bright red blood in stools, fever, photophobia. States that family members have been sick recently and that he works around [employer] at [employer]. No hx of hemorrhoids. - History of Current Complaint Chief Complaint: EDAbdPain Stated Complaint: ABD PAIN Time Seen by Provider: 08/18/17 13:23 Hx Obtained From: Patient Onset/Duration: Lasting Days - Since yesterday, Still Present Timing: Constant Severity Currently: Mild Pain Intensity: 3 Pain Scale Used: 0-10 Numeric Aggravating Factor(s): Other: - Light Alleviating Factor(s): Nothing Associated Signs And Symptoms: Positive: Fever, Blood in Stool - Bright red, Decreased Appetite, Nausea, Vomiting, Diarrhea, Other - photophobia - Allergies/Home Medications Allergies/Adverse Reactions: Allergies Allergy/AdvReac Type Severity Reaction Status Date / Time egg Allergy Nausea And Verified 08/18/17 21:09 Vomiting PMH/Surg Hx/FS Hx/Imm Hx Previously Healthy: Yes Endocrine/Hematology History: Denies: Hx Diabetes, Hx Thyroid Disease Cardiovascular History: Denies: Hx Hypertension, Hx Pacemaker/ICD Respiratory History: Denies: Hx Asthma, Hx Chronic Obstructive Pulmonary Disease (COPD) History: Denies: Hx Renal Disease Sensory History: Denies: Hx Hearing Aid Psychiatric History: Denies: Hx Panic Disorder - Surgical History Surgery Procedure, Year, and Place: tubes in bilat ears;. TONSILECTOMY Infectious Disease History: No Infectious Disease History: Denies: Hx Clostridium Difficile, Hx Hepatitis, Hx Human Immunodeficiency Virus (HIV), Hx of Known/Suspected MRSA, Hx Shingles, Hx Tuberculosis, Hx Known/ Suspected VRE, Hx Known/Suspected VRSA, History Other Infectious Disease, Traveled Outside the [place] in Last 30 Days - Family History Known Family History: Positive: Cardiac Disease, Hypertension, Diabetes, Other - HLD - Social History Alcohol Use: Occasionally Hx Substance Use: No Substance Use Type: Reports: None Hx Tobacco Use: Yes Smoking Status (MU): Heavy Every Day Tobacco Smoker Amount Used/How Often: 1 ppd Review of Systems Positive: Fever. Negative: Chills Positive: Photophobia. Negative: Erythema Negative: Sore Throat Negative: Chest Pain Negative: Shortness Of Breath, Cough Positive: Abdominal Pain, Vomiting, Diarrhea, Nausea, Other - Decreased appetite , bright red blood in stools Negative: dysuria, hematuria Negative: Myalgia, Edema Negative: Rash Neurological: Negative - Dizziness All Other Systems Reviewed And Are Negative: Yes Physical Exam - Summary Physical Exam Summary: Constitutional: Well-developed, Well-nourished, Alert. (-) Distressed Skin: Warm, Dry HENT: Normocephalic; Atraumatic Eyes: Conjunctiva normal Neck: Musculoskeletal ROM normal neck. (-) JVD, (-) Stridor, (-) Tracheal deviation Cardio: Rhythm regular, rate normal, Heart sounds normal; Intact distal pulses; The pedal pulses are 2+ and symmetric. Radial pulses are 2+ and symmetric. (-) Murmur Pulmonary/Chest wall: Effort normal. (-) Respiratory distress, (-) Wheezes, (-) Rales Abd: Soft, Diffuse tenderness in the lower abdomen, (-) Distension, (-) Guarding , (-) Rebound Musculoskeletal: (-) Edema Lymph: (-) Cervical adenopathy Neuro: Alert, Oriented x3 Psych: Mood and affect Normal Triage Information Reviewed: Yes Vital Signs On Initial Exam: Initial Vitals Pulse BP Pulse Ox 100 126/76 96 08/18/17 13:23 08/18/17 13:23 08/18/17 13:23 Vital Signs Reviewed: Yes Diagnostics - Vital Signs Vital Signs Temp Pulse Resp BP Pulse Ox 08/18/17 13:29 104.7 F 98 20 126/79 98 08/18/17 13:25 100 97 08/18/17 13:23 100 126/76 96 - Laboratory Lab Results: Lab Results 08/18/17 08/18/17 08/18/17 Range/Units 13:50 13:50 14:06 WBC 17.0 H (3.5-10.8) 10^3/ul RBC 5.36 (4.0-5.4) 10^6/ul Hgb 16.5 (14.0-18.0) g/dl Hct 48 (42-52) % MCV 89 (80-94) fL MCH 31 (27-31) pg MCHC 34 (31-36) g/dl RDW 13 (10.5-15) % Plt Count 249 (150-450) 10^3/ul MPV 7.4 (7.4-10.4) um3 Neut % (Auto) 85.3 H (38-83) % Lymph % (Auto) 6.8 L (25-47) % Irion % (Auto) 7.7 H (0-7) % Eos % (Auto) 0 (0-6) % Baso % (Auto) 0.2 (0-2) % Absolute Neuts (auto) 14.5 H (1.5-7.7) 10^3/ul Absolute Lymphs (auto) 1.2 (1.0-4.8) 10^3/ul Absolute Monos (auto) 1.3 H (0-0.8) 10^3/ul Absolute Eos (auto) 0 (0-0.6) 10^3/ul Absolute Basos (auto) 0 (0-0.2) 10^3/ul Absolute Nucleated RBC 0 10^3/ul Nucleated RBC % 0 Sodium 131 L (139-145) mmol/L Potassium 3.4 L (3.5-5.0) mmol/L Chloride 98 L (101-111) mmol/L Carbon Dioxide 23 (22-32) mmol/L Anion Gap 10 (2-11) mmol/L BUN 12 (6-24) mg/dL Creatinine 1.18 H (0.67-1.17) mg/dL Est GFR ( Amer) 95.2 (>60) Est GFR (Non-Af Amer) 74.0 (>60) BUN/Creatinine Ratio 10.2 (8-20) Glucose 92 (70-100) mg/dL Lactic Acid (0.5-2.0) mmol/L Calcium 8.9 (8.6-10.3) mg/dL Total Bilirubin 0.50 (0.2-1.0) mg/dL AST 35 (13-39) U/L ALT 44 (7-52) U/L Alkaline Phosphatase 63 (34-104) U/L C-Reactive Protein 153.36 H (< 5.00) mg/L Total Protein 7.4 (6.4-8.9) g/dL Albumin 4.1 (3.2-5.2) g/dL Globulin 3.3 (2-4) g/dL Albumin/Globulin Ratio 1.2 (1-3) Lipase 26 (11.0-82.0) U/L / Range/Units 14:06 WBC (3.5-10.8) 10^3/ul RBC (4.0-5.4) 10^6/ul Hgb (14.0-18.0) g/dl Hct (42-52) % MCV (80-94) fL MCH (27-31) pg MCHC (31-36) g/dl RDW (10.5-15) % Plt Count (150-450) 10^3/ul MPV (7.4-10.4) um3 Neut % (Auto) (38-83) % Lymph % (Auto) (25-47) % Irion % (Auto) (0-7) % Eos % (Auto) (0-6) % Baso % (Auto) (0-2) % Absolute Neuts (auto) (1.5-7.7) 10^3/ul Absolute Lymphs (auto) (1.0-4.8) 10^3/ul Absolute Monos (auto) (0-0.8) 10^3/ul Absolute Eos (auto) (0-0.6) 10^3/ul Absolute Basos (auto) (0-0.2) 10^3/ul Absolute Nucleated RBC 10^3/ul Nucleated RBC % Sodium (139-145) mmol/L Potassium (3.5-5.0) mmol/L Chloride (101-111) mmol/L Carbon Dioxide (22-32) mmol/L Anion Gap (2-11) mmol/L BUN (6-24) mg/dL Creatinine (0.67-1.17) mg/dL Est GFR ( Amer) (>60) Est GFR (Non-Af Amer) (>60) BUN/Creatinine Ratio (8-20) Glucose (70-100) mg/dL Lactic Acid 1.2 (0.5-2.0) mmol/L Calcium (8.6-10.3) mg/dL Total Bilirubin (0.2-1.0) mg/dL AST (13-39) U/L ALT (7-52) U/L Alkaline Phosphatase (34-104) U/L C-Reactive Protein (< 5.00) mg/L Total Protein (6.4-8.9) g/dL Albumin (3.2-5.2) g/dL Globulin (2-4) g/dL Albumin/Globulin Ratio (1-3) Lipase (11.0-82.0) U/L Result Diagrams: 08/22/17 05:54 08/20/17 06:29 Lab Statement: Any lab studies that have been ordered have been reviewed, and results considered in the medical decision making process. - CT A/P CT Interpretation Completed By: Radiologist - 1. Normal appendix documented. 2. The CT appearance of the colon is concerning for probable ulcerative colitis. Only mild contiguous colonic wall thickening. No significant perienteric inflammatory change, ascites, or peritoneal abscess. Mild small bowel ileus. ED Physician has reviewed this report. Re-Evaluation - Re-Evaluation 1 Re-Evaluation Time: 18:00 Change: Worse - Pt is tacycardic, ill-appearing, and continues to have diarrhea. Abdominal Pain Fem Course/Dx - Course Course Of Treatment: 27 y/o M c/o abdominal pain and bright red blood per rectum. CT A/P is indicative of colitis. Pt is given Tylenol, Cipro, Flagyl, Morphine, Zofran, and IV fluids. Lab work is obtained. Pts symptoms are not improved while in ED. Dr. Ramsey agrees to admit this patient. - Diagnoses Provider Diagnoses: Colitis - Provider Notifications Discussed Care Of Patient With: Peter Ramsey MD - hospitalist Time Discussed With Above Provider: 18:24 Instructed by Provider To: Admit As Inpatient Discharge - Sign-Out/Discharge Documenting (check all that apply): Discharge/Admit/Transfer - Discharge Plan Condition: Stable Disposition: ADMITTED TO [facility] - Billing Disposition and Condition Condition: STABLE Disposition: [facility]P-[facility] The documentation as recorded by the Arthur wilhelm Tiffany accurately reflects the service I personally performed and the decisions made by , Richard Lloyd MD.
== END 2017-08-22 13:20 | disposition home or self-care (01) | DRG 372 ==
LOC: ED 13:17 → MED 18:52
PROVIDERS: ADMIT Hospitalist; ATTEND Student in an Organized Health Care Education/Training Program
DX: A02.0 Salmonella enteritis (principal); K56.7 Ileus, unspecified; Z68.42 Body mass index [BMI] 45.0-49.9, adult; E87.8 Other disorders of electrolyte and fluid balance, not elsewhere classified; E66.01 Morbid (severe) obesity due to excess calories; D72.829 Elevated white blood cell count, unspecified; F17.210 Nicotine dependence, cigarettes, uncomplicated; Z72.89 Other problems related to lifestyle; Z83.3 Family history of diabetes mellitus; Z91.012 Allergy to eggs; Z82.49 Family history of ischemic heart disease and other diseases of the circulatory system; Z83.49 Family history of other endocrine, nutritional and metabolic diseases
CPT/HCPCS: 36415; 74019; 74177; 80048; 80053; 82272; 83605; 83630; 83690; 85014; 85018; 85025; 85060; 86140; 87040; 87045; 87046; 87077; 87177; 87209; 87328; 87329; 87449; 87493; 87899; 99284; A9270-GY; J0744; J2270; J2405; J3480; J3490; Q9967

== ENCOUNTER 2017-08-28 11:32 | Emergency (ER) | payer SELFPAY ==
[2017-08-28 11:56] VITALS: BP 119/81
--- NOTE | 2017-08-28 12:15 | UC ---
Marcellus Rogders Gabriel, scribed for Prabha Lewis MD on 08/28/17 at 1208 . 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 The pt was admitted from to 5-3 for salmonella and colitis. The patient rates the pain 0/10 in severity. The pt states due to insurance issues he is unable to see his PCP. He states since he finished the antibiotics 4 days ago and feels better, he finished them this week. Pt denies n/v/d, fever, and chills. Pt has had "normal " BM x 3 days. No fever. Normal po. Pt does report mild ABD pain and states he has not had diarrhea for the last three days. Pt has no other complaints at this time. Patients medication reviewed this visit. - History of Current Complaint Chief Complaint: UCGeneralIllness Stated Complaint: FOLLOW UP Time Seen by Provider: 08/28/17 11:53 Hx Obtained From: Patient Onset/Duration: Resolved Timing: Intermittent Episodes Lasting: Current Severity: None Pain Intensity: 0 Associated Signs & Symptoms: Positive: Abdominal Pain - mild. Negative: Agitation, Anticoagulation Therapy, Back Pain, Confusion, Cough, Chest Pain, Decreased Responsiveness, Dizziness, Diarrhea, Dysuria, Decreased Oral Intake, Diaphoresis, Edema, Fever, Headache, Hematemesis, Hemoptysis, Immunocompromised , In-Dwelling Medication Device, Melena, Nausea, Palpitations, Recent Medication Changes, Syncope, SOB, Trauma, Vomiting, Wheezing, Weakness, Other Related Hx: Recent Hospitalization - Allergy/Home Medications Allergies/Adverse Reactions: Allergies Allergy/AdvReac Type Severity Reaction Status Date / Time egg Allergy Nausea And Verified 08/28/17 11:56 Vomiting shellfish derived Allergy Nausea And Verified 08/28/17 11:56 Vomiting PMH/Surg Hx/FS Hx/Imm Hx Previously Healthy: Yes Other History Of: Negative For: Hepatitis C - Surgical History Surgical History: Yes Surgery Procedure, Year, and Place: tubes in bilat ears;. TONSILECTOMY - Family History Known Family History: Positive: Cardiac Disease, Hypertension, Diabetes, Other - HLD - Social History Occupation: Employed Full-time Alcohol Use: Occasionally Substance Use Type: None Smoking Status (MU): Light Every Day Tobacco Smoker Type: Cigarettes Amount Used/How Often: 1 ppd Household Exposure Type: Cigarettes - Immunization History Most Recent Influenza Vaccination: n/a Most Recent Pneumonia Vaccination: n/a Review of Systems Constitutional: Negative Skin: Negative Eyes: Negative ENT: Negative Respiratory: Negative Cardiovascular: Negative Gastrointestinal: Abdominal Pain - mild Genitourinary: Negative Motor: Negative Neurovascular: Negative Musculoskeletal: Negative Neurological: Negative Psychological: Negative All Other Systems Reviewed And Are Negative: Yes Physical Exam Triage Information Reviewed: Yes Appearance: Well-Appearing, No Pain Distress, Well-Nourished Vital Signs: Initial Vital Signs Temp 97.4 F 08/28/17 11:52 Pulse 97 08/28/17 11:52 Resp 18 08/28/17 11:52 BP 119/81 08/28/17 11:52 Pulse Ox 99 08/28/17 11:52 Vital Signs Reviewed: Yes Eye Exam: Normal Eyes: Positive: Conjunctiva Clear ENT Exam: Normal ENT: Positive: Normal ENT inspection, Hearing grossly normal, Pharynx normal, TMs normal, Uvula midline Dental Exam: Normal Neck exam: Normal Neck: Positive: Supple, Nontender, No Lymphadenopathy Respiratory Exam: Normal Respiratory: Positive: Chest non-tender, Lungs clear, Normal breath sounds, No respiratory distress, No accessory muscle use Cardiovascular Exam: Normal Cardiovascular: Positive: RRR, No Murmur, Pulses Normal Abdominal Exam: Normal Abdomen Description: Positive: Nontender, No Organomegaly, Soft Bowel Sounds: Positive: Present Musculoskeletal Exam: Normal Musculoskeletal: Positive: Strength Intact Neurological Exam: Normal Neurological: Positive: Alert Psychological Exam: Normal Psychological: Positive: Normal Response To Family Skin Exam: Normal Course/Dx - Course Course Of Treatment: From [employer]: It is 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 However, there is no evidence that such individuals are a major source of outbreaks or infection when asymptomatic. Hand hygiene and general infection control practices remain the most important aspects of preventing spread of Salmonella. Pt was treated for salmonella. Pt has completed abx regimen. Pt afebrile, normal BM. Will write return to work note. pt has a pcp - Differential Dx - Multi-Symptom Provider Diagnoses: colitis recheck Discharge - Sign-Out/Discharge Documenting (check all that apply): Discharge/Admit/Transfer - Discharge Plan Condition: Stable Disposition: HOME Patient Education Materials: Salmonella Infection (ED), Infectious Colitis (ED) Forms: *Gen. Provider Communication Referrals: No Primary Care Phys,NOPCP [Primary Care Provider] - Additional Instructions: stay well hydrated Drink plenty of non-alcoholic, non-caffinated beverages If you develop loose stool, fever, pain, vomiting or ANY other concerns it is recommended you leave work and are re-evaluated - Billing Disposition and Condition Condition: STABLE Disposition: HOME The documentation as recorded by the Marcellus wilhelm Gabriel accurately reflects the service I personally performed and the decisions made by , Prabha Lewis MD.
== END 2017-08-28 12:51 | disposition home or self-care (01) ==
LOC: UCEAST 11:32
DX: Z09 Encounter for follow-up examination after completed treatment for conditions other than malignant neoplasm (principal); A02.0 Salmonella enteritis
CPT/HCPCS: 99212; G0463

== ENCOUNTER 2017-12-03 18:11 | Emergency (ER) | payer OTHER ==
--- OUTSIDE RECORDS SUMMARY | 2017-12-03 18:17 | XMS REPORT ---
:1990 External Reference #:[id number] Author Organization [facility] Address [address] [place] [address] [place] [address] Phone [phone] Care Team Providers Name Role Phone Brad Orr MD Primary Care Physician Unavailable Payers Type Date Identification Payment Provider Subscriber Numbers Workers Compensation Effective: Policy Number: [employer] Lex Goodson 11/20/2015 [id number] Expires: 04/21/2017 Group Name: [id number] Onset: 11/20/2015 PayID: [id number] [place] [address] Commercial Effective: Policy Number: [employer] Lex Goodson 11/20/2017 [id number] Medicaid PayID: [id number] [facility] [address] [place] [address] Problems Date Description Provider Status Onset: 11/20/2017 Localized, primary osteoarthritis Chrissy Gambino M.D. Active Onset: 11/25/2015 Sprain of lateral collateral ligament of Chrissy Gambino M.D. Active knee Onset: 11/25/2015 Knee joint effusion Chrissy Gambino M.D. 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 ETOH Use Rarely consumes alcohol Smoking Light tobacco smoker (10 or fewer cigarettes/day) Exercise Type/Frequency Exercises regularly Allergies, Adverse Reactions, Alerts Date Description Reaction Status Severity Comments 11/25/2015 NKDA active Medications Medication Date Status Form Strength Qnty SIG Indications Ordering Provider Meloxicam Active Tablets 15mg 30tabs 1 by mouth M25.562 Chrissy 8 every day Umm Gambino Chantix Active Unknown 0 Percocet Hx Tablets 5-325mg 90tabs 1-2 tabs M25.561 Chrissy 6 - by mouth Umm Gambino q6 as 8 needed pain Naproxen Hx Tablets 500mg 1 tablet Unknown 0 - with food by mouth 8 twice a day Medications Administered in Office Medication Date Status Form Strength Qnty SIG Indications Ordering Provider Depomedrol Administered Injection Chrissy 40MG 016 Umm Gambino Vital Signs Date Vital Result Comment 11/20/2017 Height 68.25 inches 5'8.25" Weight 280.00 lb Heart Rate 64 /min BP Systolic 124 mmHg BP Diastolic 68 mmHg BMI (Body Mass Index) 42.3 kg/m2 01/20/2016 Heart Rate 83 /min BP Systolic 146 mmHg BP Diastolic 97 mmHg Pain Level 0 01/04/2016 Heart Rate 76 /min BP Systolic 128 mmHg BP Diastolic 83 mmHg Pain Level 5 12/12/2015 Heart Rate 70 /min BP Systolic 116 mmHg BP Diastolic 83 mmHg Pain Level 4 11/25/2015 Height 68 inches 5'8" Weight 280.00 lb Heart Rate 68 /min BP Systolic 116 mmHg BP Diastolic 83 mmHg Pain Level 7 BMI (Body Mass Index) 42.6 kg/m2 Results Description No Information Procedures Date CPT Code Description Status 11/20/201749712 Inject/Drain Joint/Bursa Major W/O US Completed 01/04/2016 48673 Inject/Drain Joint/Bursa Major W/O US Completed Encounters Type Date Location Provider CPT E/M Dx Office Visit 08/22/2017 [facility] Juanita Beasley, [address] A02.0 10:33a Infectious Diseases Umm K65.8 Office Visit 08/22/2017 10:13a [facility],arabella Mclaughlin, [place].P. [address] K52.9 Hospitalists A41.9 E65 Z72.0 Office Visit 08/21/2017 10:22a [facility] Juanita Beasley, [address] A02.0 Infectious Diseases M.DSeb K65.8 Office Visit 08/21/2017 10:10a [facility], [place] [address] K52.9 Hospitalists A41.9 E65 Z72.0 Office Visit 08/20/2017 10:20a [facility] Edvin SalazarSeb Gale, [address] A02.0 Infectious Diseases M.DSeb R00.0 Office Visit 08/20/2017 10:09a [facility], [place] [address] K52.9 Hospitalists A41.9 E65 Z72.0 Office Visit 08/18/2017 10:03a [facility], Ariel Villegas, [address] K52.9 Hospitalists N.PSeb A41.9 E65 Z72.0 Office Visit 01/20/2016 9:00a [facility] Chrissy Gambino M.D. 06278 M25.561 C.M.A. W19.xxxD Office Visit 12/12/2015 11:15a [facility] Gambino M.D. 41583 M25.561 C.M.A. M25.461 Office Visit 11/25/2015 1:15p [facility] Gambino, [address] S83.421A C.MLorraine Salomon M25.561 M25.461 M25.461 W19.xxxA S83.421A M25.561 Plan of Care 11/20/2017 - Chrissy Gambino M.D.M25.562 Pain in left kneeNew Medication: Meloxicam 15 mgNew Therapy:Physical TherapyFollow up:Follow up: after testing is completed - mri L kneeM25.462 Effusion, left kneeNew Xrays:MRI Knee Left W/ OM17.12 Unilateral primary osteoarthritis, left knee
--- OUTSIDE RECORDS SUMMARY | 2017-12-03 18:17 | XMS REPORT ---
:1990 External Reference #:[id number] Author Organization [facility] Address [address] [place] [address] Phone [phone] Care Team Providers Name Role Phone Brad Orr MD Care Team Information Hands Assembler Unavailable Brad Orr MD Primary Care Physician Unavailable Payers Type Date Identification Numbers Payment Provider Subscriber Medicaid Effective: 2017 Policy Number: [id number] Medicaid BECKY Goodson PayID: [id number] [address] [place] [address] Problems Description No Information Family History Date Family Member(s) Problem(s) Comments Onset: (age 38 Years) Father [place] Father Colon Cancer age 33 Social History Type Date Description Comments Smoking Heavy tobacco smoker (more than 10 cigarettes/day) Allergies, Adverse Reactions, Alerts Date Description Reaction Status Severity Comments 11/18/2017 Eggs active 11/18/2017 Seafood active Medications Medication Date Status Form Strength Qnty SIG Indications Ordering Provider Chantix Active Tablets 0.5mg X 11 1tabs use as F17.210 Brad Javier Starting 018 & 1 mg X 42 directed Kirby Solis MD Chantix Active Tablets 1mg 56tabs 1 by mouth F17.210 Brad Javier Continuing 018 twice a Kirby may MD Vital Signs Date Vital Result Comment 11/18/2017 BP Systolic 112 mmHg BP Diastolic 82 mmHg Heart Rate 72 /min Body Temperature 98.1 F Height 69 inches 5'9" Weight 278.00 lb BMI (Body Mass Index) 41.0 kg/m2 Right Visual Acuity Distance 20/25 Left Visual Acuity Distance 20/30 Results Test Date Test Result H/L Range Note Laboratory test finding 11/18/2017 Thyroid Stimulating <pending> Hormone (TSH) Procedures Description No Information Plan of Care 11/18/2017 - Brad Orr MDZ00.00 Encntr for general adult medical exam w/o abnormal nwvyjjdhD96.301 Oth meniscus derangements, unsp lateral meniscus, left kneeNew Xrays:MRI Knee W/O Contrast LeftComments:we'll refer you to Dr. Gambino as well.F17.210 Nicotine dependence, cigarettes, uncomplicatedNew Medication:Chantix Starting Month Will 0.5 mg X 11 & 1 mg X 42Chantix Continuing Month Will 1 mgE66.09 Other obesity due to excess caloriesAllComments: ~B_~U_Medication Management~b_~u_ Patient Understands medications he's taking? Yes No Are there Barriers to Adherence? Yes No Has the patient been asked about herbal supplements and therapies, and OTC meds? Yes No
[2017-12-03 18:27] VITALS: BP 131/88
[2017-12-03] MEDS ORDERED: HYDROcodone/ACETAMIN 5-325 MG* 1 TAB PO ONE ×2 (18:35→19:37)
[2017-12-03] MEDS ORDERED: Ketorolac INJ* 60 MG/2 ML VIAL IM ONE (18:36)
--- NOTE | 2017-12-03 18:43 | UC ---
Lower Extremity/Ankle HPI - HPI Summary HPI Summary: The pt is a 27 y/o male presenting to c/o L knee pain for months worsened today while at work. The acute on chronic pain is rated 10/10 in severity. The pt notes difficulty walking. He received a steroid shot 6 days ago to a temporary relief. The pain returned 2 days ago. He had an MRI done today and feels like has an air bubble in his knee. He works 10 hours a week on a concrete floor. The pt has a follow-up appointment with Dr. Gambino on Saturday12/06/2017 for the knee. NKDA This is scribe Sera High documenting for attending Dr. Vazquez Almonte. I, Dr. Vazquez Almonte , personally performed the services described in this documentation as scribed in my presence and it is both accurate and complete. - History of Current Complaint Chief Complaint: UCLowerExtremity Stated Complaint: KNEE PAIN AND LEG PAIN Time Seen by Provider: 12/03/17 18:31 Hx Obtained From: Patient Onset/Duration: Other - Acute on chronic Severity Initially: Severe Severity Currently: Severe Pain Intensity: 10 Pain Scale Used: 0-10 Numeric Aggravating Factor(s): Standing Alleviating Factor(s): Other - Steroid injections (temporarily) - Allergies/Home Medications Allergies/Adverse Reactions: Allergies Allergy/AdvReac Type Severity Reaction Status Date / Time egg Allergy Nausea And Verified 12/03/17 18:27 Vomiting shellfish derived Allergy Nausea And Verified 12/03/17 18:27 Vomiting Home Medications: Home Medications Varenicline (NF) [Chantix 1 MG TAB (NF)] 12/03/17 [History] PMH/Surg Hx/FS Hx/Imm Hx Previously Healthy: Yes - Denies any PMHx of HTN, HLD and AK Other History Of: Negative For: Hepatitis C - Surgical History Surgical History: Yes Surgery Procedure, Year, and Place: tubes in bilat ears;. TONSILECTOMY - Family History Known Family History: Positive: Cardiac Disease, Hypertension, Diabetes, Other - HLD - Social History Occupation: Employed Full-time Lives: With Family Alcohol Use: Occasionally Substance Use Type: None Smoking Status (MU): Light Every Day Tobacco Smoker Type: Cigarettes Amount Used/How Often: 1 ppd Household Exposure Type: Cigarettes - Immunization History Most Recent Influenza Vaccination: n/a Most Recent Pneumonia Vaccination: n/a Review of Systems Constitutional: Negative - Fever Motor: Other - Difficulty ambulating Musculoskeletal: Other: - L knee pain All Other Systems Reviewed And Are Negative: Yes Physical Exam - Summary Physical Exam Summary: General: well-appearing, moderate pain distress Skin: warm, color reflects adequate perfusion, dry Head: normal Eyes: EOMI, SHANNA ENT: normal Neck: supple, nontender Respiratory: CTA, breath sounds present Cardiovascular: RRR Abdomen: soft, nontender Bowel: present Musculoskeletal: L knee tender to palpation on the lateral , medial and posterior aspect; No effusion; No erythema ; Not hot to touch ; Unable to complete knee exam due to pain Neurological: sensory/motor intact, A&O x3 Psychological: affect/mood appropriate Triage Information Reviewed: Yes Vital Signs: Initial Vital Signs Temp 98.1 F 12/03/17 18:21 Pulse 88 12/03/17 18:21 Resp 18 12/03/17 18:21 BP 131/88 12/03/17 18:21 Pulse Ox 96 12/03/17 18:21 Vital Signs Reviewed: Yes Re-Evaluation - Re-Evaluation First Eval Change: Improved - The pt is still in some pain. The provider discussed the discharge plan with the pt and he agrees with it. Lower Extremity Course/Dx - Course Course Of Treatment: GIVEN TORADOL 60MG IM AND TWO NORCO 5/325 IN CLINIC WITH IMPROVEMENT IN PAIN. F/U ORTHOPEDICS. - Differential Dx/Diagnosis Provider Diagnoses: LEFT KNEE PAIN AND EFFUSION Discharge - Sign-Out/Discharge Documenting (check all that apply): Patient Departure - DC - Discharge Plan Condition: Stable Disposition: HOME Prescriptions: oxyCODONE/Acetamin 5/325 MG* [Percocet 5/325 TAB*] 1 tab PO Q4H PRN #30 tab MDD 6 PRN Reason: Pain Patient Education Materials: Swollen Knee Joint (ED), Knee Pain (ED) Referrals: Chrissy Gambino MD [Medical Doctor] - Brad Orr MD [Primary Care Provider] - Additional Instructions: FOLLOW UP WITH ORTHOPEDICS SCHEDULED. GET RECHECKED FOR ANY WORSENING OF YOUR CONDITION OR QUESTIONS OR CONCERNS. - Billing Disposition and Condition Condition: STABLE Disposition: Home
== END 2017-12-03 20:00 | disposition home or self-care (01) ==
LOC: UCEAST 18:11
DX: M25.562 Pain in left knee (principal); M25.462 Effusion, left knee; R26.2 Difficulty in walking, not elsewhere classified; Z91.012 Allergy to eggs; Z91.013 Allergy to seafood; F17.210 Nicotine dependence, cigarettes, uncomplicated
CPT/HCPCS: 99212; G0463; J1885

== ENCOUNTER 2018-04-21 17:11 | Emergency (ER) | payer OTHER ==
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
[2018-04-21] MEDS ORDERED: Morphine VIAL* 10 MG/ML 1 ML VIAL IV ONE (17:22)
[2018-04-21] MEDS ORDERED: Ondansetron INJ* 2 MG/ML VIAL IV ONE (17:23)
[2018-04-21] MEDS ORDERED: NS 0.9% 1000 ML* 1,000 ML IV ONE (17:35)
[2018-04-21 17:44] VITALS: BP 126/72
== END 2018-04-21 18:00 | disposition short-term general hospital (02) ==
LOC: UCEAST 17:11
DX: M25.552 Pain in left hip (principal); F17.210 Nicotine dependence, cigarettes, uncomplicated; Z91.030 Bee allergy status
CPT/HCPCS: 96360; 96374; 96375; 99203; G0463; J2270; J2405

== ENCOUNTER 2018-04-21 18:04 | Emergency (ER) | payer OTHER ==
[2018-04-21] MEDS ORDERED: Morphine VIAL* 4 MG/ML VIAL (1 ml vial) IV ONE (18:31)
[2018-04-21] MEDS ORDERED: Ketorolac INJ* 30 MG/ML 1 ML VIAL IV PUSH ONE (18:31)
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
[2018-04-21 20:14] VITALS: BP 119/78
== END 2018-04-21 20:34 | disposition home or self-care (01) ==
LOC: ED 18:04
DX: S70.02XA Contusion of left hip, initial encounter (principal); W22.8XXA Striking against or struck by other objects, initial encounter; Y92.481 Parking lot as the place of occurrence of the external cause; Y99.0 Civilian activity done for income or pay; Z91.012 Allergy to eggs; F17.210 Nicotine dependence, cigarettes, uncomplicated
CPT/HCPCS: 72131; 72192; 96374; 96375; 99283; J1885; J2270

== ENCOUNTER 2019-01-24 20:21 | Emergency (ER) | payer OTHER ==
--- OUTSIDE RECORDS SUMMARY | 2019-01-24 20:28 | XMS REPORT | Continuity of Care Document ---
:1990 Author Organization [facility] Support Name Relationship Address Phone CECILIA LOGAN mother [address] [place] [address] Allergies and Intolerances No Known Allergies Medications RxNorm Medication Dose Route Instructions Start Date End Date Status 85502 Ondansetron 4 mg oral orally every 6 hours as Active needed. (as needed for nausea and vomiting) Problems No Data in the system Procedures Code Code System Procedure Date 699533020 SNOMED CT Tonsillectomy [address] Myringotomy and insertion of tympanic ventilation tube 1994 Results No data in the system Social History Code Code System Social History Description Dates Observed Observation 398629049984310 SNOMED CT Current Smoking Current some day Status smoker UNK AdministrativeGender Sex Assigned At Unknown Vital Signs Code Code System Vitals Value Date 8865-8 [facility] Pulse Rate 71 {beats}/min 11/21/2018 9279-1 [facility] Respiratory Rate 18 /min 11/21/2018 76528-4 [facility] O2% BldC Oximetry 96 % 11/21/2018 8480-6 [facility] BP Systolic 103 mm[Hg] 11/21/2018 8462-4 [facility] BP Diastolic 53 mm[Hg] 11/21/2018 8310-5 [facility] Body Temperature 97.7 [degF] 11/21/2018 8302-2 [facility] Height 69 [in_i] 11/21/2018 98437-4 [facility] Weight 133 kg 11/21/2018 3140-1 [facility] Body surface area Derived from formula 2.43 m2 11/21/2018 97425-6 [facility] BMI (Body Mass Index) 43.4 kg/m2 11/21/2018 Goals Section No data in the system Health Concerns No data in the systemEncounter Diagnosis Date Code Code System Diagnosis Status T63.441A ICD10 TOXIC EFF VENOM BEES ACC INIT ENC Active Advance Directives PT STATES NO ADVANCE DIRECTIVES Directive Type Effective Date Italian Tutor Notes Supporting Document Name Address Phone No Directive Type 09/07/2018 Not Specified Not Specified Not Specified None No specified 11:18:00 PM Family History Family History Unknown Functional Status Code Functional Condition Code System Date Status Obese [facility] 11/21/2018 Active Independent adls [facility] 11/21/2018 Active Immunizations No data in the system Medical Equipment No data in the system Mental Status Code Cognitive Condition Code System Date Status Oriented x 3 [facility] 11/21/2018 Active No acute distress [facility] 11/21/2018 Active Alert [facility] 11/21/2018 Active Assessment and Plan Assessments No data in the systemPlan Of Treatment No data in the systemPending Tests No data in the system Hospital Discharge Instructions No data in the system Reason for Visit Reason for Visit Difficulty Breathing
--- OUTSIDE RECORDS SUMMARY | 2019-01-24 20:28 | XMS REPORT | Continuity of Care Document ---
:1990 External Reference #:[id number] Demographics Home Phone [phone] Email Address Preferred Language en Marital Status Declined to Specify/Unknown Faith Affiliation Unknown Race White Ethnic Group Declined to Specify/Unknown Author Name Mitchell Tom MD Address [address] [place] [address] Care Team Providers Name Role Phone Mitchell Tom MD - Family Medicine Care Team Information Store Group Manager [phone] Pramdo Wilson MD Care Team Information Store Group Manager [phone] Problems Active Problems Provider Date Degeneration of lumbar intervertebral disc Mitchell Tom MD Onset: 12/30/2018 Social History Type Date Description Comments Sex Unknown Tobacco Use Start: 04/22/05 currently smokes 1/2 Pack Daily Tobacco Use Start: Unknown End: Former Cigarette Smoker 1 1/2 Unknown Packs Daily Smoking Status Reviewed: 12/30/18 Former Cigarette Smoker 1 1/2 Packs Daily ETOH Use Occasionally consumes alcohol Recreational Drug Use Formerly used Marijuana sporadically Tobacco Use Start: Unknown Light tobacco smoker (10 or fewer cigarettes/day) Allergies, Adverse Reactions, Alerts Description No Known Drug Allergies Medications Active Medications SIG Qnty Indications Ordering Provider Date Gabapentin 1 by mouth 90caps M51.36 Mitchell Tom MD 12/30/2018 300mg Capsules three times a day History Medications No Active Medications Unknown 12/29/2018 - 12/30/2018 Immunizations CPT Code Status Date Vaccine Lot # [id number] Given 12/30/2018 Tdap (Adacel) Ages 7 And Above Only Vital Signs Date Vital Result Comment 12/30/2018 10:24am Weight 286.00 lb Heart Rate 88 /min BP Systolic 126 mmHg BP Diastolic 82 mmHg Height 68.5 inches 5'8.50" BMI (Body Mass Index) 42.8 kg/m2 Results Description No Information Available Procedures Description No Information Available Medical Devices Description No Information Available Encounters Description No Information Available Assessments Date Code Description Provider 12/30/2018 M23.612 Other spontaneous disruption of anterior cruciate Mitchell Tom MD ligament of LEFT knee 12/30/2018 M23.307 Other meniscus derangements, unspecified Mitchell Tom MD meniscus, LEFT knee 12/30/2018 M51.36 Other intervertebral disc degeneration, lumbar Mitchell Tom MD region 12/30/2018 E66.01 Morbid (severe) obesity due to excess calories Mitchell Tom MD 12/30/2018 Z68.41 Body mass index (BMI) 40.0-44.9, adult Mitchell Tom MD Plan of Treatment Future Appointment(s):01/04/2020 9:00 am - Mitchell Tom MD at [facility]12/30/2018 - Mitchell Tom, MDM23.612 Other spontaneous disruption of anterior cruciate ligament of LEFT kneeComments:Will refer to orthopedist for further evaluation and treatment as he has failed conservative treatment.Referral:Pramod Wilson MD,M23.307 Other meniscus derangements, unspecified meniscus, LEFT kneeM51.36 Other intervertebral disc degeneration, lumbar regionNew Medication:Gabapentin 300 mg - 1 by mouth three times a dayComments:Can try gabapentin. Will ask orthopedist to evaluate further for recommendations for nanhcrbkrS82.01 Morbid (severe) obesity due to excess caloriesMiscellaneous:Body Mass Index greater than 40 indicates morbid obesity. Your BMI is 42 This puts you at risk for developing diabetes, heart disease, stroke and other medical problems. Continue your healthy diet andget regular exercise Eliminate junk food, sweets and fried foods from your diet. Don't drink beverages sweetened with sugar.Z68.41 Body mass index (BMI) 40.0-44.9, adultAllFollow up:1 year CPE Functional Status Description No Information Available Mental Status Description No Information Available Referrals Refer to Dr Reason for Referral Status Appt Date Pramod Wilson MD Scheduled 01/15/[address] [place] [phone]
[2019-01-24 20:38] VITALS: BP 140/79
[2019-01-24] MEDS ORDERED: LORazepam TAB(*) 1 MG PO ONE (21:01)
--- NOTE | 2019-01-24 21:09 | UC ---
Back Pain HPI - HPI Summary HPI Summary: Patient is a 28yo male presenting with his girlfriend for left lower back pain x3 hours. 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 Denies injury or trauma to his back. Denies radiation of his pain. Notes his left leg is numb now. States he is still able to stand and ambulate, though it causes "excruciating pain." Denies any alleviating factors. Denies decreased strength in left leg. Denies any incontinence or difficulty using the bathroom. Patient states he currently takes gabapentin for the pain. He also took 1,000mg of ibuprofen before coming in today. Notes no relief. Patient states he has a follow up appointment with a back surgeon in [place] on Saturday for further evaluation of his pain. - History of Current Complaint Chief Complaint: UCBackPain Stated Complaint: BACK PAIN Pain Intensity: 10 Associated Signs And Symptoms: Positive: Numbness. Negative: Bladder Incontinence, Bowel Incontinence - Allergies/Home Medications Allergies/Adverse Reactions: Allergies Allergy/AdvReac Type Severity Reaction Status Date / Time egg Allergy Nausea And Verified 04/21/18 17:21 Vomiting Home Medications: Home Medications Gabapentin TAB(NF) [Neurontin 600 mg TAB(NF)] 600 mg 01/24/19 [History] Ibuprofen 1,000 mg PO 01/24/19 [History] PMH/Surg Hx/FS Hx/Imm Hx Other History Of: Negative For: Hepatitis C - Surgical History Surgical History: None Surgery Procedure, Year, and Place: tubes in bilat ears;. TONSILECTOMY - Family History Known Family History: Positive: Cardiac Disease, Hypertension, Diabetes, Other - HLD - Social History Alcohol Use: Occasionally Substance Use Type: None Smoking Status (MU): Light Every Day Tobacco Smoker Type: Cigarettes Amount Used/How Often: 1 ppd Household Exposure Type: Cigarettes - Immunization History Most Recent Influenza Vaccination: n/a Most Recent Pneumonia Vaccination: n/a Review of Systems All Other Systems Reviewed And Are Negative: Yes Constitutional: Negative: Fever, Chills, Fatigue Skin: Positive: Negative Eyes: Positive: Negative ENT: Positive: Negative Respiratory: Positive: Negative. Negative: Shortness Of Breath, Cough Cardiovascular: Positive: Negative. Negative: Palpitations, Chest Pain Gastrointestinal: Positive: Negative. Negative: Abdominal Pain, Vomiting, Diarrhea, Nausea Genitourinary: Positive: Negative Motor: Positive: Decreased ROM Neurovascular: Positive: Decreased Sensation Musculoskeletal: Positive: Arthralgia, Myalgia. Negative: Edema Neurological: Positive: Numbness - entire left leg. Negative: Paresthesia Physical Exam Triage Information Reviewed: Yes Appearance: Well-Nourished, Pain Distress - patient is in wheelchair leaning to the right while bracing his left lower back with his left hand Vital Signs: Initial Vital Signs Temp 99.3 F 01/24/19 20:31 Pulse 91 01/24/19 20:31 Resp 18 01/24/19 20:31 BP 140/79 01/24/19 20: Pulse Ox 96 01/24/19 20:31 Vital Signs Reviewed: Yes Eyes: Positive: Conjunctiva Clear ENT: Positive: Hearing grossly normal Neck: Positive: Supple Respiratory Exam: Normal Respiratory: Positive: Lungs clear, Normal breath sounds, No respiratory distress, No accessory muscle use Cardiovascular Exam: Normal Cardiovascular: Positive: RRR, Pulses Normal. Negative: Distal Pulses Weak, Distal Pulses Absent Musculoskeletal: Positive: Strength Intact, No Edema, ROM Limited @ - hip movement due to pain Patient exhibited increased pain with hip movement, standing, and ambulating, Other: - severe pain to palpation of left lower back. no midline tenderness. normal DTRs in bilateral LEs Neurological Exam: Other - patient notes generalized numbness to entire left leg on exam Neurological: Positive: Alert, Muscle Tone Normal Skin Exam: Normal - no ecchymosis noted Back Pain Course/Dx - Course Course Of Treatment: No signs of cauda equina syndrome based on PE findings and history. Patient received ativan with "a little" pain relief. Patient given the option of receiving Mary Esther and a medrol dose maria m for short term pain relief until he is able to attend his follow up appointment. His other option was to go to the emergency room. The patient decided he did not want any narcotics or to go to the ED. Patient agreed to go home and begin taking the medrol dose maria m tomorrow. Instructed him to go to the emergency room if pain worsens, he cannot walk, or if he experiences any bowel or urinary dysfunction. I also stressed the importance of attending his appointment on Saturday. Discussed patient with Dr. Lorenz who agreed to the treatment plan. Patient voiced understanding and agreed to the treatment plan. - Differential Dx/Diagnosis Provider Diagnosis: Left lumbar pain, Left lumbar radiculopathy Discharge ED - Sign-Out/Discharge Documenting (check all that apply): Patient Departure All imaging exams completed and their final reports reviewed: No Studies - Discharge Plan Condition: Stable Disposition: HOME Prescriptions: methylPREDNISolone [Medrol] 4 mg PO .SEE MARIA M INSTRUCTION #1 tab.ds.pk Forms: *Work Release Referrals: No Primary Care Phys,NOPCP [Primary Care Provider] - Additional Instructions: As discussed, you received Ativan here to help relief some of your pain. Take the medrol dose maria m as prescribed to help relieve inflammation. You may continue to take your gabapentin as directed. You may continue to take ibuprofen as directed for pain relief. Be sure to attend your appointment with your back surgeon on Saturday for further evaluation. Go to the emergency room if your pain worsens, you are unable to walk, or you experience difficulty urinating or having a BM. - Billing Disposition and Condition Condition: STABLE Disposition: Home
== END 2019-01-24 22:02 | disposition home or self-care (01) ==
LOC: UCEAST 20:21
DX: M54.5 Low back pain (principal); M54.16 Radiculopathy, lumbar region; F17.210 Nicotine dependence, cigarettes, uncomplicated; Z91.012 Allergy to eggs
CPT/HCPCS: 99212; A9270-GY; G0463

== ENCOUNTER 2019-06-09 16:13 | Emergency (ER) | payer OTHER ==
--- OUTSIDE RECORDS SUMMARY | 2019-06-09 16:24 | XMS REPORT | Continuity of Care Document ---
:1990 External Reference #:[id number] Author Name Brad Orr MD Address [address] [place] [address] Care Team Providers Name Role Phone Brad Orr MD - Family Care Team Information Estimator And Drafter Medicine Chrissy Gambino MD - Orthopaedic Care Team Information Estimator And Drafter Surgery [facility] - Care Team Information Estimator And Drafter [phone] Gastroenterology Problems Description No Information Available Social History Type Date Description Comments Sex Unknown Tobacco Use Start: Unknown Heavy tobacco smoker (more than 10 cigarettes/day) Smoking Status Reviewed: 04/28/19 Heavy tobacco smoker (more than 10 cigarettes/day) Tobacco Use Start: Unknown Heavy tobacco smoker (more than 10 cigarettes/day) Allergies, Adverse Reactions, Alerts Active Allergies Reaction Severity Comments Date NKDA 04/28/2019 Inactive Allergies Eggs 11/18/2017 Seafood 11/18/2017 Medications Active Medications SIG Qnty Indications Ordering Provider Date Meloxicam 1 by mouth every 30tabs Brad Javier 05/06/2019 15mg Tablets day as needed MD Kirby for muscle pain. Orphenadrine Citrate take 1 tablet 60tabs M54.5 Brad Javier 04/28/2019 ER every 12 hours MD Kirby 100mg Tablets ER 12HR for muscle pain. Oxycodone HCL 1 by mouth four Unknown 10mg times a day as Tablets needed pain History Medications No Active Medications Unknown 04/28/2019 - 04/28/2019 Diclofenac Sodium apply twice a 1tube Darell Cabrales, 04/28/2019 - 1% Gel day for back M.D. 05/06/2019 pain Immunizations Description No Information Available Vital Signs Date Vital Result Comment 05/06/2019 7:29pm BP Systolic 118 mmHg BP Diastolic 88 mmHg Heart Rate 86 /min Body Temperature 98.2 F Respiratory Rate 16 /min Height 68.5 inches 5'8.50" Weight 291.00 lb BMI (Body Mass Index) 43.6 kg/m2 04/28/2019 12:52pm BP Systolic 102 mmHg BP Diastolic 70 mmHg Heart Rate 64 /min Body Temperature 98.2 F Respiratory Rate 20 /min Height 68.5 inches 5'8.50" Weight 297.00 lb BMI (Body Mass Index) 44.5 kg/m2 Right Visual Acuity Distance 20/50 Left Visual Acuity Distance 20/40 Results Test Acquired Date Facility Test Result H/L Range Note Comprehensive 04/28/2019 [facility]) Sodium 140 mEq/L 134-149 Metabolic Prof Potassium 4.5 mEq/L 3.6-5.5 Chloride 105 mEq/L 94-112 Carbon Dioxide 28 mEq/L 21-32 Glucose 94 mg/dL 70-105 BUN 12 mg/dL 6-26 Creatinine 0.9 mg/dL 0.6-1.4 BUN/Creat Ratio 13.3 CALC 8.0-36.0 Calcium 10.2 mg/dL 8.6-10.2 Total Protein 7.4 g/dL 6.4-8.3 Albumin 4.9 g/dL 3.8-5.5 Globulin 2.5 g/dL 2.0-4.8 A/G Ratio 2.0 CALC 0.6-2.3 Alk. Phosphatase 77 U/L 22-95 Alt (SGPT) 92 U/L High 7-35 Ast (Sgot) 38 U/L High 5-34 Total Bilirubin 0.4 mg/dL 0.2-1.3 GFR Non- >60 ml/min/1.73m^ >=60 GFR >60 ml/min/1.73m^ >=60 CBC Electronic [facility]ma 04/28/2019 [facility]) WBC 9.3 x10^3/UL 4.0- 10.0 RBC 5.06 x10^6/UL 3.93-6.00 HGB 15.8 g/dL 12.0-17.0 HCT 46 % 35-50 MCV 91.1 fL 80.0-95.0 MCH 31.2 pg 25.6-32.2 MCHC 34.3 g/dL 32.2-36.0 RDW-CV 12.9 % 11.6-14.4 PLT 366 x10^3/UL 163-400 MPV 8.9 fL Low 9.4-12.4 Bernarda# 6.13 x10^3/UL 1.56-6.13 Lymph# 2.00 x10^3/UL 1.18-3.74 [place]# 0.77 x10^3/UL 0.24-0.82 Eos # 0.3 x10^3/UL 0.0-0.5 Baso # 0.07 x10^3/UL 0.01-0.08 Bernarda% 65.8 % 34.0-70.0 Lymph % 21.5 % 20.0-52.0 [place]% 8.3 % 5.0-12.0 Eos% 3.2 % 0.7-7.0 Baso% 0.8 % 0.1-1.2 Laboratory test 04/28/2019 [facility] Hemoglobin A1c 5.4 % % 4.1- 5.7 finding (607)- - ([facility]ma) Procedures Date Code Description Status 04/28/2019 14347 Vision Test- screening test of visual acuity, Completed quantitative, bila 01/09/2018 84992345 Colonoscopy Completed Medical Devices Description No Information Available Encounters Type Date Location Provider Dx Diagnosis Office Visit 04/28/2019 [facility] Office DERIK Elizalde M54.5 Low back pain 1:00p E78.2 Mixed hyperlipidemia F17.210 Nicotine dependence, cigarettes, uncomplicated Z00.00 Encntr for general adult medical exam w/o abnormal findings Assessments Date Code Description Provider 05/06/2019 M54.2 Cervicalgia Brad Orr MD 05/06/2019 M54.5 Low back pain Brad Orr MD 04/28/2019 M54.5 Low back pain DERIK Elizalde 04/28/2019 E78.2 Mixed hyperlipidemia DERIK Elizalde 04/28/2019 F17.210 Nicotine dependence, cigarettes, DERIK Elizalde uncomplicated 04/28/2019 Z00.00 Encounter for general adult medical DERIK Elizalde examination without abnormal findings Plan of Treatment Future Appointment(s):06/02/2019 4:15 pm - DERIK Elizalde at [facility] Txymij3105/06/2019 - Brad Orr, MDM54.2 SthyzdtkniiP97.5 Low back painAllNew Medication:Meloxicam 15 mg - 1 by mouth every day as needed for muscle pain.Comments:Medication Management Patient Understands medications he's taking? Yes No Are there Barriersto Adherence? Yes No Has the patient been asked about herbal supplements and therapies, and OTC meds? Yes No Functional Status Description No Information Available Mental Status Description No Information Available Referrals Refer to Reason for Referral Status Appt Date Marilynn Singh MD LBP-consult and treat jw Sent [address] [place] [address] [phone] [facility] low back pain consult and treat jw Sent [address] [place] [address] [phone]
--- OUTSIDE RECORDS SUMMARY | 2019-06-09 16:24 | XMS REPORT | Continuity of Care Document ---
:1990 External Reference #:[id number] Author Name DERIK Elizalde Address [address] [place] [address] Care Team Providers Name Role Phone Brad Orr MD - Family Care Team Information Heavy Equipment Rental Manager Medicine Chrsisy Gambino MD - Orthopaedic Care Team Information Heavy Equipment Rental Manager Surgery [facility] - Care Team Information Heavy Equipment Rental Manager [phone] Gastroenterology Problems Description No Information Available Social History Type Date Description Comments Sex Unknown Tobacco Use Start: Unknown Heavy tobacco smoker (more than 10 cigarettes/day) Smoking Status Reviewed: 06/02/19 Heavy tobacco smoker (more than 10 cigarettes/day) Tobacco Use Start: Unknown Heavy tobacco smoker (more than 10 cigarettes/day) Allergies, Adverse Reactions, Alerts Active Allergies Reaction Severity Comments Date NKDA 04/28/2019 Inactive Allergies Eggs 11/18/2017 Seafood 11/18/2017 Medications Active Medications SIG Qnty Indications Ordering Provider Date One Daily 1 tablet daily. 30tabs K59.00 Darell Cabrales, 06/02/2019 Multivitamin/Iron M.D. Adult Tablets Meloxicam 1 by mouth every 30tabs Brad [...] Available Vital Signs Date Vital Result Comment 06/02/2019 4:14pm BP Systolic 122 mmHg BP Diastolic 80 mmHg Heart Rate 76 /min Body Temperature 97.9 F Respiratory Rate 16 /min Height 68.5 inches 5'8.50" Weight 297.12 lb shoes on BMI (Body Mass Index) 44.5 kg/m2 05/06/2019 7:29pm BP Systolic 118 mmHg BP Diastolic 88 mmHg Heart Rate 86 /min Body Temperature 98.2 F Respiratory Rate 16 /min Height 68.5 inches 5'8.50" Weight 291.00 lb BMI (Body Mass Index) 43.6 kg/m2 Results Test Acquired Date Facility Test Result H/L Range Note Comprehensive 04/28/2019 Yehuda Kinga([facility]) Sodium 140 mEq/L 134-149 Metabolic Prof Potassium [...] 6.13 x10^3/UL 1.56-6.13 Lymph# 2.00 x10^3/UL 1.18-3.74 Barton# 0.77 x10^3/UL 0.24-0.82 Eos # 0.3 x10^3/UL 0.0-0.5 Baso # 0.07 x10^3/UL 0.01-0.08 Bernarda% 65.8 % 34.0-70.0 Lymph % 21.5 % 20.0-52.0 Barton% 8.3 % 5.0-12.0 Eos% 3.2 % 0.7-7.0 Baso% 0.8 % 0.1-1.2 Laboratory test 04/28/2019 [facility] Hemoglobin A1c 5.4 % % 4.1- 5.7 finding (607)- - (Fma) Procedures Date Code Description Status 04/28/2019 80990 Vision Test- screening test of visual acuity, Completed quantitative, bila 01/09/2018 [id number] Colonoscopy Completed Medical Devices Description No Information Available Encounters Type Date Location Provider Dx Diagnosis Office Visit 05/06/2019 7:40p Main Office Brad Orr MD M54.2 Cervicalgia M54.5 Low back pain Office Visit 04/28/2019 1:00p [facility] Lee Ann Paris, M54.5 Low back pain [place] E78.2 Mixed hyperlipidemia F17.210 Nicotine dependence, cigarettes, uncomplicated Z00.00 Encntr for general adult medical exam w/o abnormal findings Assessments Date Code Description Provider 06/02/2019 K59.00 Constipation, unspecified DERIK Elizalde 06/02/2019 E66.3 Overweight DERIK Elizalde 06/02/2019 R94.5 Abnormal results of liver function DERIK Elizalde studies 05/06/2019 M54.2 Cervicalgia Brad Orr MD 05/06/2019 M54.5 Low back pain Brad Orr MD 04/28/2019 M54.5 Low back pain DERIK Elizalde 04/28/2019 E78.2 Mixed hyperlipidemia DERIK Elizalde 04/28/2019 F17.210 Nicotine dependence, cigarettes, DERIK Elizalde uncomplicated 04/28/2019 Z00.00 Encounter for general adult medical DERIK Elizalde examination without abnormal findings Plan of Treatment 06/02/2019 - Lee Ann Paris, PAK59.00 Constipation, unspecifiedNew Medication: One Daily Multivitamin/Iron Adult - 1 tablet daily.Comments:More vegetables- green leafy veggiesWhole wheat over white breads veggie pastas Start multivitamin More water or Body [place] Metamucil to help bulk up the bwgcijS07.3 QhyinnthbvE75.5 Abnormal results of liver function studiesComments: Check labs todayAllComments:PCMHMedication Management Patient Understands medications he's taking? Yes Are there Barriers to Adherence? No Has the patient been asked about herbal supplements and therapies, and OTC meds ? Yes Care Plan1. Patient has been queried about patient's goals/ preferences and functional/lifestyle goals at relevant visits. Yes If relevant, describe: N/A2. Treatment goals as explained to the patient: above3. Are there barriers to meeting treatment goals? No If Yes, please describe:4. Self-Management goals as described to the patient: Yes As always, we strongly encourage a healthy diet and making physical activity a part of your every day life. If you have questions about how or where to start, please contact the office. Functional Status Description No Information Available Mental Status Description No Information Available Referrals Refer to Reason for Referral Status Appt Date Marilynn Singh MD LBP-consult and treat jw Sent [address] [place] [address] [phone] [facility] Pain Clinic low back pain consult and treat jw Sent [address] [place] [address] [phone]
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
[2019-06-09 16:39] VITALS: BP 122/80
== END 2019-06-09 16:45 | disposition short-term general hospital (02) ==
LOC: UCEAST 16:13
DX: T71.9XXA Asphyxiation due to unspecified cause, initial encounter (principal); Y92.9 Unspecified place or not applicable; F17.210 Nicotine dependence, cigarettes, uncomplicated
CPT/HCPCS: 99213; G0463

== ENCOUNTER 2019-06-09 17:05 | Emergency (ER) | payer OTHER ==
[2019-06-09 17:44] LABS: ABS Basophils 0.1 10^3/ul (0-0.2); ABS Eosinophils 0.4 10^3/ul (0-0.6); ABS Lymphocytes 1.9 10^3/ul (1.0-4.8); ABS Monocytes 1.2 10^3/ul (0-0.8); Eosinophil % 3.2 %; Hematocrit 47 % (42-52); Hemoglobin 16.2 g/dL (14.0-18.0); Lymphocyte % 16.5 %; Mean Corpuscular HGB Conc 34 g/dL (31-36); Mean Corpuscular Hemoglobin 31 pg (27-31); Mean Corpuscular Volume 91 fL (80-94); Mean Platelet Volume 7.2 fL (7.4-10.4); Platelet Count 310 10^3/uL (150-450); Red Blood Count 5.15 10^6 /uL (4.18-5.48); Red Cell Distribution Width 14 % (10-15); White Blood Count 11.5 10^3/uL (3.5-10.8)
[2019-06-09 18:10] LABS: Albumin 4.5 g/dL (3.2-5.2); Calcium 9.5 mg/dL (8.6-10.3); Potassium 4.3 mmol/L (3.5-5.0); Total Bilirubin 0.3 mg/dL (0.2-1.0)
[2019-06-09 18:16] LABS: Albumin/Globulin Ratio 1.5 (1-3); BUN/Creatinine Ratio 19.1 (8-20); EGFR African American 122.3 (>60); EGFR Non-African American 101.1 (>60); Total Protein 7.5 g/dL (6.4-8.9)
[2019-06-09] MEDS ORDERED: Iohexol 300* (CONTRAST) 10 ML SDV IV ONE (18:23)
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
[2019-06-09 19:42] VITALS: BP 131/87
== END 2019-06-09 19:40 | disposition home or self-care (01) ==
LOC: ED 17:05
DX: T71.191A Asphyxiation due to mechanical threat to breathing due to other causes, accidental, initial encounter (principal); E04.1 Nontoxic single thyroid nodule; F17.210 Nicotine dependence, cigarettes, uncomplicated
CPT/HCPCS: 36415; 70491; 80053; 83605; 85025; 99282; Q9967

== ENCOUNTER 2019-09-11 10:23 | Observation (INO) ==
[~2019-09-11 10:23] MED LIST: Famotidine IV 10 MG/ML 2 ml VIAL (20 mg) IV ONE; Lactated Ringers 1000 ml BAG 1,000 ML IV SCH
[2019-09-11] MEDS ORDERED: Famotidine IV 10 MG/ML 2 ml VIAL (20 mg) ONE (10:42)
[2019-09-11] MEDS ORDERED: fentaNYL 100 mcg/2 ml 50 MCG/ML VIAL ONE ×6 (11:54→20:29)
[2019-09-11] MEDS ORDERED: Ketamine HCL 50 mg/ml 10 ml VIAL (500 MG) ONE (11:54)
[2019-09-11] MEDS ORDERED: Dexamethasone IV 4 MG/ML VIAL 1 ml VIAL ONE (11:54)
[2019-09-11] MEDS ORDERED: Midazolam 5 mg/5 ml VIAL 1 mg/ml 5 ml VIAL (5 mg) ONE (11:54)
[2019-09-11] MEDS ORDERED: Propofol 10 MG/ML 20 ML BTL ONE ×2 (11:54→15:30)
[2019-09-11] MEDS ORDERED: Ondansetron 4 mg VIAL 2 MG/ML 2 ml VIAL ONE (11:54)
[2019-09-11] MEDS ORDERED: Lidocaine 2% PF 5 ML VIAL ONE (11:54)
[2019-09-11] MEDS ORDERED: Succinylcholine 200 mg VIAL 20 mg/ml 10 ml VIAL (200 mg) ONE (12:58)
[2019-09-11] MEDS ORDERED: fentaNYL 250 mcg/5 ml 50 MCG/ML 5 ml VIAL (250 MCG) ONE (13:21)
[2019-09-11] MEDS ORDERED: Phenylephrine IV 10 MG/ML 1 ml VIAL ONE (16:47)
[2019-09-11] MEDS ORDERED: Bacitracin OINTMENT TUBE ONE (18:40)
[2019-09-11] MEDS ORDERED: Morphine 2 MG/ML SYRINGE IV PRN (19:23)
[2019-09-11] MEDS ORDERED: Ondansetron 4 mg VIAL 2 MG/ML 2 ml VIAL IV PRN (19:23)
[2019-09-11] MEDS ORDERED: fentaNYL 100 mcg/2 ml 50 MCG/ML VIAL IV PRN (20:33)
[2019-09-11] MEDS ORDERED: Naloxone 0.4 mg VIAL 0.4 mg/ml 1 ml VIAL IV PRN (20:33)
[2019-09-11] MEDS: Calcium Carb 1250 mg TAB (500 mg elemental calcium) PO SCH (22:13)
[2019-09-12] MEDS: oxyCODONE/Acetamin 5/325 mg TAB PO PRN ×2 (04:16→10:24)
[2019-09-12] MEDS: Calcium Carb 1250 mg TAB (500 mg elemental calcium) PO SCH ×2 (05:48→13:37)
[2019-09-12] MEDS: Bacitracin OINTMENT TUBE TOPICAL SCH ×2 (08:17→13:37)
[2019-09-12 11:55] VITALS: BP 145/68
[2019-09-14] MEDS ORDERED: Scopolamine PATCH Remove NOTE PATCH OFF ONE (06:00)
== END 2019-09-12 14:00 | disposition home or self-care (01) ==
LOC: OR 10:23 → SSU 10:23
PROVIDERS: ADMIT Hospitalist; ATTEND Internal Medicine